=== PATIENT | female | born 1965 | race Caucasian/White ===

== ENCOUNTER 2017-02-15 18:19 | Emergency (ER) | payer MEDICAID ==
[~2017-02-15] VITALS: Ht 170.2 cm; Wt 104.3 kg
[~2017-02-15 18:19] MED LIST: B12 PO; BACTRIM DS 8001 TA1 PO; BACTRIM DS 8001 TAB PO; CIPRO 500MG TA500 MG PO; DOXYCYCLINE HY100 M3 PO; FIORICET1 CAP PO; FLONASE 50 MCG16 GM; HARVONI1 TAB PO; INDERAL10 MG PO; KEFLEX 500MG.500 MG PO; KEFLEX500 M1 PO; LORTAB 5/500 501 TAB PO; MEDROL 4MG. DOSE4 MG PO; NOMEDS *; PHENAZOPYRIDIN200 MG PO; PREDNISONE 20MG20 MG PO; RIBAVIRIN200 M1 PO; SYMBICORT1 AE1 IH; TYLENOL W/CODEI1 TA2 PO; VENTOLIN H0.09 MG/Ac IH
--- OUTSIDE RECORDS SUMMARY | 2017-02-15 18:32 | External Medical Summary Rpt | CCD ---
Author Author , BRIAN Organization BRIAN Address Unknown Phone Care Team Providers Care Residential Glazier Name Role Phone Christophe Haji MD, Unavailable Unavailable MICA Isaac MD, Unavailable Unavailable MICA [facility] Unavailable Unavailable SERVICE, [facility] C BIN OQUENDO MD Unavailable Unavailable [facility], C BIN OQUENDO MD [facility] EDWARD MEERA, CHEYANNE Unavailable Unavailable MEERA [facility] Un[facility] Unavailable [facility], [facility] Unavailable Unavailable [facility], [facility], Unavailable Unavailable [facility] MARY ANN SHAISTA, MARY ANN Unavailable Unavailable SHAISTA ANAHI GARCÍA, Unavailable Unavailable ANAHI GARCÍA [facility] Unavailable Unavailable INC, [facility] Unavailable Unavailable HOSPITAL P, [facility], Unavailable Unavailable [facility] KEISHA BLAIR, Unavailable Unavailable KEISHA BLAIR [facility] Unavailable Unavailable [facility], [facility] Unavailable Unavailable [facility], [facility] Unavailable Unavailable [facility], [facility] Unavailable Unavailable SERVICES, [facility] KATHARINA LIANG, Unavailable Unavailable DEEPIKA ORNELAS JR, JR Unavailable Unavailable Anders, DEEPIKA POSADAS JR, EMMETT P, Unavailable Unavailable BELINDA WELLS [facility] Unavailable [facility] Unavailable Unavailable [facility], [facility] Unavailable Unavailable LAB, [facility] CARISSA COURTNEY, Unavailable Unavailable CARISSA COURTNEY [facility] Unavailable Unavailable EMERGENCY PHYS, [facility] SUHAIL ODOM, Unavailable Unavailable SUHAIL ODOM [facility], Unavailable Unavailable [facility] Unavailable Unavailable #[id number], [facility] # Unavailable Unavailable [id number], [facility] # [id number] [id number], [facility]available Unavailable [id number] Unavailable Unavailable AGENCY, [facility] Deepika Dale Unavailable Marcia PERERA MD, Deepika Dale III, MD Purpose Continuity of Care Document - 06-26-2007 through 2016 Problems Code Diagnosis DOS Provider Status E785 HYPERLIPIDE 12-20-2016 [facility] [facility] UNSPECIFIED INTERNAL MED J302 OTHER 12-20-2016 [facility] [place] [facility] ALLERGIC INTERNAL RHINITIS MED J3089 OTHER 12-20-2016 [facility] ALLERGIC [facility] RHINITIS INTERNAL MED J431 PANLOBULAR 12-20-2016 [facility] EMPHYSEMA [facility] INTERNAL MED K219 GASTRO-ESOP 12-20-2016 [facility] H REFLUX [facility] DISEASE INTERNAL WITHOUT MED ESOPHAGITIS Z23 ENCOUNTER 12-20-2016 [facility] FOR [facility] IMMUNIZATIO INTERNAL N MED Z1231 ENCOUNTER 12-12-2016 [facility] MEDICAL MAMMO MALIG IMAGING ASS NEOPLASM BREAST R300 DYSURIA 11-02-2016 [facility] INTERNAL MED B182 CHRONIC 08-30-2016 [facility] V[facility] SERV HEPATITIS C FOUNDATION I10 ESSENTIAL 08-18-2016 [facility] HYPERTENSIO INTERNAL N MED J310 CHRONIC 08-18-2016 [facility] RHINITIS [place] INTERNAL MED J309 ALLERGIC 07-03-2016 [facility] RHINITIS PHYSICIANS UNSPECIFIED GROUP J320 CHRONIC 07-03-2016 [facility] MAXILLARY PHYSICIANS SINUSITIS GROUP J342 DEVIATED 07-03-2016 [facility] NASAL PHYSICIANS SEPTUM GROUP R040 EPISTAXIS 02-06-2016 [facility] J322 CHRONIC 01-06-2016 [facility] SINUSITIS J329 CHRONIC 01-06-2016 [facility] SINUSITIS ANESTH OF UNSPECIFIED THE BLUE D126 BENIGN 01-03-2016 [facility] NEOPLASM OF PHYSICIANS COLON GROUP UNSPECIFIED J40 BRONCHITIS 12-20-2015 [facility] NOT PHYSICIANS SPECIFIED GROUP ACUTE OR CHRONIC Y04018 ENCOUNTER 12-20-2015 [facility] PRE[facility] INC AL CARIOVASCUL AR EXAM S19885 ENCOUNTER 12-20-2015 [facility] AL LABORATORY EXAM D122 BENIGN 12-14-2015 [facility] NEOPLASM OF LLC ASCENDING COLON D125 BENIGN 12-14-2015 [facility] NEOPLASM OF PHYSICIANS SIGMOID GROUP COLON K529 NONINFECTIV 12-14-2015 [facility] E [facility] GASTROENTER ITIS & COLITIS UNS K633 ULCER OF 12-14-2015 [facility] INTESTINE PHYSICIANS GROUP K635 POLYP OF 12-14-2015 [facility] COLON [facility] K644 RESIDUAL 12-14-2015 [facility] HEMORRHOIDA PHYSICIANS L SKIN TAGS GROUP Z1211 ENCOUNTER 12-14-2015 [facility] SCREENING PHYSICIANS MALIGNANT GROUP NEOPLASM OF COLON J323 CHRONIC 12-10-2015 [facility] SINUSITIS INC R928 OTH ABNORM 12-07-2015 [facility] IN[facility]CLUSIV [facility]ING ASS E FIND ON DX IMAG BREAST M2669 OTHER 11-29-2015 [facility] SPECIFIED PHYSICIANS DISORDER GROUP TEMPOROMAND IBULAR JOINT J0130 ACUTE 11-15-2015 [facility]ENOIDAL [facility] SINUSITIS INTERNAL UNSPECIFIED MED V03297 ENCOUNTER 11-15-2015 [facility] PLANNING SPECIALIST EXAM LLC GENERAL RTN W/O ABNORMAL FIND R079 CHEST PAIN 11-11-2015 [facility] R51 HEADACHE 11-11-2015 [facility] Z720 TOBACCO USE 11-11-2015 [facility] P J029 ACUTE 09-23-2015 [facility] PHARYNGITIS [facility] INTERNAL UNSPECIFIED MED H6591 UNSPECIFIED 01-21-2015 [facility] NONSUPPURAT INTERNAL KAREN OTITIS MED MEDIA RT EAR A90082 PAIN IN 01-21-2015 [facility] RIGHT HIP [facility] INTERNAL MED R938 ABNORMAL 01-21-2015 [facility] FIND ON DX MEDICAL IMAGING OT IMAGING ASS SPEC BODY STRCT 74590 CHRONIC 12-29-2014 [facility] HEPATITIS C SERV WITHOUT FOUNDATION MENTION HEPATIC COMA 5715 CIRRHOSIS 12-29-2014 [facility]ICAL OF LIVER SERV WITHOUT FOUNDATION MENTION OF ALCOHOL 4019 UNSPECIFIED 11-11-2014 [facility] ESSENTIAL [facility] HYPERTENSIO INTERNAL N MED 496 CHRONIC 11-11-2014 [facility] [place] [facility] OBSTRUCTION INTERNAL NEC MED 4659 ACUTE URIS 10-07-2014 [facility] OF [facility] UNSPECIFIED INTERNAL SITE MED 2512 HYPOGLYCEMI 09-23-2014 [facility] A[facility] UNSPECIFIED INC 7820 DISTURBANCE 09-23-2014 [facility] OF SKIN [facility] SENSATION INC V1582 PERS HX 09-20-2014 [facility] TOBACCO USE [facility] PRESENTING INC [facility] 59510 UNSPECIFIED 09-16-2014 [facility]ICAL VIRAL SERV HEPATITIS C FOUNDATION W/O HEPATIC COMA 5920 CALCULUS OF 09-16-2014 [facility] 7804 DIZZINESS 07-30-2014 [facility] GIDD[facility] 7840 HEADACHE 07-30-2014 [facility] V6709 FOLLOW-UP 03-03-2014 [facility] EXAMINATION PHYSICIANS FOLLOWING GROUP OTHER SURGERY 5728 OTHER 03-02-2014 [place] [facility] SEQUEL[facility] OF SERV CHRONIC FOUNDATION LIVER DISEASE 6823 CELLULITIS 02-08-2014 [facility] AND ABSCESS PHYSICIANS OF UPPER GROUP ARM AND FOREARM 6829 CELLULITIS 02-06-2014 [facility] ABSCESS PHYSICIANS OF [place] UNSPECIFIED SITE 95524 OTHER 01-26-2014 [facility] DISORDER OF STOMACH AND DUODENUM 5723 PORTAL 01-26-2014 [facility] N V7189 OBSERVATION 01-26-2014 [facility] SPECIFIED SUSPECTED CONDITIONS 5739 UNSPECIFIED 12-26-2013 [place] [facility]ICAL DISORDER SERV OF LIVER FOUNDATION 6825 CELLULITIS 12-25-2013 [facility] OF [place] PHYS 10629 OTHER 09-29-2013 [facility] FATIGUE INC V0262 HEPATITIS C 09-29-2013 [facility] INC V700 ROUTINE 09-29-2013 [facility]ICAL INC EXAM@HEALTH CARE FACL V7612 OTHER 09-29-2013 [facility] SCREENING MEDICAL MAMMOGRAM IMAGING ASS V7231 ROUTINE 09-24-[address] [facility] EXAMINATION 616.4 616.4 02-13-2013 [place] ABSCESS OF [facility] VULVA [facility] 305.1 305.1 11-26-2012 [place] TOBACCO USE [facility] 780.39 780.39 11-26-2012 [place] OTHER [facility] CONVULSIONS [facility] 913.5 913.5 11-26-2012 [place] INSECT BITE [facility] FOREARM-INF 19247 ACUT 05-18-2012 [facility] TIS W/O LES INC RENAL MEDULRY NECROS 53028 UNSPECIFIED 05-18-2012 [facility] PYELONEPHRI SERVICES TIS 4660 ACUTE 12-19-2011 [facility]IS [facility] INC 490 BRONCHITIS 12-19-2011 [facility] NOT SPECIFIED ACUTE OR CHRONIC 02162 OTHER 12-19-2011 [facility] INSUFFICIEN SERVICE CY NEC 91284 ACUTE 12-19-2011 MARY ANN SHAISTA BRONCHOSPAS M 7862 COUGH 12-19-2011 [facility] 2181 INTRAMURAL 10-12-2011 EDWARD MEERA LEIOMYOMA OF UTERUS 6201 CORPUS 10-12-2011 EDWARD MEERA LUTEUM CYST OR HEMATOMA 6259 UNSPEC 10-12-2011 ED[facility] MEERA SYMPTOM ASSOC W/FEMALE GENITAL ORGANS 2189 LEIOMYOMA 09-01-2011 [facility] OF UTERUS, MEDICAL UNSPECIFIED IMAGING ASS 6202 OTHER AND 09-01-2011 [facility] UNSPECIFIED MEDICAL OVARIAN IMAGING ASS CYST 58647 ABDOMINAL 09-01-2011 [facility] PAIN RIGHT [facility] LOWER INC QUADRANT 5990 URINARY 08-25-2011 KATHARINA TAYLOR TRACT GARTH INFECTION SITE NOT SPECIFIED 34318 UNSPECIFIED 08-25-2011 KATHARINA TAYLOR VAGINITIS GARTH AND VULVOVAGINI TIS 30787 OLD 10-28-2010 [facility] DISRUPTION PHYSICIANS OF ANTERIOR GROUP CRUCIATE LIGAMENT 66464 VISUAL 10-13-2010 [facility] DISCOMFORT [facility]LEY INTERNAL MEDI 00775 PAIN IN 10-13-2010 [facility] JOINT, VALLEY LOWER LEG INTERNAL MEDI 8449 SPRAIN&STRA 10-03-2010 [facility] IN OF [facility] UNSPECIFIED INC SITE OF KNEE&LEG 9596 INJURY 10-03-2010 [facility] OTHER AND MEDICAL UNSPECIFIED IMAGING ASS HIP AND THIGH 9597 INJURY 10-03-2010 [facility] OTHER&[facility]SPE [facility] CIFIED KNEE SERVICES LEG ANKLE&FOOT 3674 PRESBYOPIA 09-22-2010 [facility] 29022 ASTHMA, 06-28-2010 [facility] UNSPECIFIED [facility]GENCY , SERVICES UNSPECIFIED STATUS 5283 CELLULITIS 04-14-2010 [facility] AND ABSCESS VALLEY OF ORAL INTERNAL SOFT MEDI TISSUES 1129 CANDIDIASIS 04-04-2010 [facility] OF [facility] UNSPECIFIED INTERNAL SITE MEDI 8603 TRAUMATIC 04-04-2010 [facility] WITH OPEN AGENCY WOUND INTO THORAX 52889 METHICILLIN 03-17-2010 [facility] SUSCEPTIBLE INTERNAL STAPH INF MED CCE & UNS SITE 41049 METHICILLIN 03-17-2010 [facility] RESISTANT ANESTH OF STAPHYLOCOC THE BLUE CUS AUREUS 68065 FEVER 03-16-2010 C [facility] UNSPECIFIED JERE TRUJILLO PSC 74142 TRICHOMONAL 02-14-2010 PATHOLOGY & CYTOLOGY VULVOVAGINI LAB TIS 6160 CERVICITIS 02-14-2010 PATHOLOGY & AND CYTOLOGY ENDOCERVICI LAB TIS 7242 LUMBAGO 02-14-2010 [facility] INTERNAL MED 89758 DISPLCMT 11-04-2009 [facility] LUMBAR MEDICAL INTERVERT IMAGING ASS DISC W/O MYELOPATHY 7231 CERVICALGIA 11-04-2009 [facility] 7234 BRACHIAL 11-04-2009 [facility] NEURITIS OR [facility] INC RADICULITIS NOS 77561 ABDOMINAL 11-04-2009 [facility] PAIN, [facility] GENERALIZED INC 3540 CARPAL 10-28-2009 [facility] TUNNEL [facility] SYNDROME INTERNAL MED 3562 HEREDITARY 10-21-2009 [facility] SENSORY [facility] NEUROPATHY INC 33074 CHEST PAIN 10-15-2009 [facility] UNSPECIFIED [facility]LEY INTERNAL MED V493 SENSORY 10-15-2009 [facility] PROBLEMS [facility] WITH LIMBS INTERNAL MED V571 OTHER 07-07-2008 [facility] PHYSICAL [facility] THERAPY INC 18707 OTHER ACUTE 06-04-2008 [facility] POSTOPERATI ANESTHESIA VE PAIN PSC 7172 DERANGEMENT 06-04-2008 [facility] POSTERIOR FOUNDATIO HORN OF MEDIAL MENISCUS 8442 SPRAIN AND 06-04-2008 [facility] STRAIN OF H CRUCIATE ANESTHESIA LIGAMENT OF [facility] KNEE 8360 TEAR MEDIAL 05-21-2008 [facility] OR MENISCUS INC KNEE CURRENT 0339 UNSPECIFIED 04-07-2008 [facility] SINUSITIS [place] INTERNAL MED 86652 UNSPECIFIED 04-07-2008 [facility] [place] ARTHROPATHY INTERNAL , LOWER LEG MED 43108 UNSPECIFIED 03-09-2008 [place] ABNORMAL MEDICAL MAMMOGRAM IMAGING ASSOCIATES 5939 UNSPECIFIED 01-21-2008 [place] DISORDER MEDICAL OF KIDNEY IMAGING AND URETER ASSOCIATES 5952 OTHER 01-21-2008 [facility] CHRONIC [facility] CYSTITIS INC 2724 OTHER AND 12-16-2007 [facility] UNSPECIFIED [place] INTERNAL HYPERLIPIDE MED JESICA 55488 OTHER 12-16-2007 [facility] CHRONIC [facility] PAIN INTERNAL MED V5883 ENCOUNTER 12-16-2007 [facility] FOR [facility] THERAPEUTIC INTERNAL DRUG MED MONITORING V762 SCREENING 09-25-2007 [facility] INC MALIGNANT NEOPLASM OF THE CERVIX 11559 OTHER 09-18-2007 [facility] ANXIETY [place] STATES INTERNAL MED 4778 ALLERGIC 09-18-2007 [facility] RHINITIS [place] DUE TO INTERNAL OTHER MED ALLERGEN 10710 ESOPHAGEAL 09-18-2007 [facility] REFLUX [place] INTERNAL MED J01.90 ACUTE SINUSITIS, UNSPECIFIED R04.0 EPISTAXIS R07.9 CHEST PAIN, UNSPECIFIED R51 HEADACHE Allergies, Adverse Reactions, Alerts Type Drug Allergy Adverse Reaction to Substance Substance Reaction Severity Tuberculin Unknown Unknown Medications Na ND Rx Da Fi Fi Am Da Di Ph RX Ph St me C No te ll ll ou ys ag ar # ys at rm s nt no ma ic us Or Da si cy ia de te s n re d HY 68 09 10 90 [address] 64 -2 -2 .0 00 L- ti OC 50 4- 0- 00 07 MA ve HL 51 20 20 48 RT OR 05 17 17 88 OT 4 45 PH HI AR AZ MA ID CY E 25 #5 91 MG TA B FL 60 09 10 16 30 00 WI Ac UT 43 -2 -1 .0 00 L- ti IC 20 0- 3- 00 07 MA ve 26 20 20 51 RT ON 41 17 17 08 E 5 05 PH IL AR OP MA CY 50 #5 MC 91 G SP RA Y EQ 49 09 10 60 30 00 WI Ac 03 -2 -1 .0 00 L- ti AC 50 0- 3- 00 08 MA ve ID 54 20 20 84 RT 67 17 17 12 RE 1 34 PH DU AR CE MA R CY CO MP #5 LE 91 T TB CH W MORENO 53 08 09 6. 3 00 WI Ac LF 74 -0 -0 00 00 L- ti AM 60 3- 1- 0 07 MA ve ET 27 20 20 50 RT HO 20 17 17 21 XA 5 30 PH ZO AR LE MA -T CY MP #5 DS 91 TA BL ET BR 00 07 08 60 30 00 WI Ac EO 17 -3 -2 .0 00 L- ti 30 0- 5- 00 07 MA ve EL 88 20 20 48 RT LI 21 17 17 88 PT 0 81 PH A AR 20 MA 0- CY 25 #5 MC 91 G IN H FL 60 07 08 16 30 00 WI Ac UT 43 -3 -2 .0 00 L- ti IC 20 0- 5- 00 07 MA ve 26 20 20 48 RT ON 41 17 17 88 E 5 49 PH IL AR OP MA CY 50 #5 MC 91 G SP RA Y HY 68 06 07 90 [address] 64 -1 -1 .0 00 L- ti OC 50 8- 4- 00 07 MA ve HL 51 20 20 48 RT OR 05 17 17 88 OT 4 45 PH HI AR AZ MA ID CY E 25 #5 91 MG TA B IL 00 06 07 18 90 00 WI Ac OP 37 -1 -1 0. 00 L- ti RA 80 8- 4- 00 07 MA ve NO 18 20 20 0 48 RT LO 30 17 17 88 L 1 44 PH 20 AR MA MG CY TA #5 BL 91 ET VE 00 05 06 36 30 00 WI Ac NT 17 -1 -1 .0 00 L- ti OL 30 9- 6 07 MA ve IN 68 20 20 48 RT 22 17 17 88 HF 0 46 PH A AR 90 MA CY MC G #5 IN 91 CORNEJO LE R FL 60 05 06 16 30 00 WI Ac UT 43 -1 -1 .0 00 L- ti IC 20 9 6 07 MA ve 26 20 20 48 RT ON 41 17 17 88 E 5 49 PH IL AR OP MA CY 50 #5 MC 91 G SP RA Y BR 00 05 06 60 30 00 WI Ac EO 17 -1 -1 .0 00 L- ti 30 07 MA ve EL 88 20 20 48 RT LI 21 17 17 88 PT 0 81 PH A AR 20 MA 0- CY 25 #5 MC 91 G IN H MO 31 05 09 29 30 00 WI Ac NT 72 -1 -0 .0 00 L- ti EL 20 9 07 MA ve UK 72 20 20 48 RT 61 17 17 23 T 0 56 PH SO AR D MA 10 CY MG #5 91 TA BL ET IL 23 05 06 60 30 00 WI Ac OP 15 -1 -0 .0 00 L- ti RA 50 6 9 07 MA ve NO 11 20 20 47 RT LO 10 17 17 85 L 1 17 PH 20 AR MA MG CY TA #5 BL 91 ET HY 68 05 30 [address] 64 -1 -0 .0 00 L- ti OC 50 6 9 07 MA ve HL 51 20 20 48 RT OR 05 17 17 23 OT 4 36 PH HI AR AZ MA ID CY E 25 #5 91 MG TA B HY 16 04 30 [address] 72 -1 -1 .0 00 L- ti OC 90 4- 2- 00 07 MA ve HL 18 20 20 48 RT OR 31 17 17 23 OT 7 36 PH HI AR AZ MA ID CY E 25 #5 91 MG TA B MO 31 04 05 30 30 00 WI Ac NT 72 -1 -1 .0 00 L- ti EL 20 4 2- 00 07 MA ve UK 72 20 20 48 RT 69 17 17 23 T 0 56 PH SO AR D MA 10 CY MG #5 91 TA BL ET IL 00 03 04 60 30 00 WA Ac OP 37 -2 -2 .0 00 L- ti RA 80 5- 1- 00 07 MA ve NO 18 20 20 47 RT LO 30 17 17 85 L 1 17 PH 20 AR MA MG CY TA #5 BL 91 ET HY 00 02 03 [address] 40 -2 -2 .0 00 L- ti OC 60 8- 4- 00 02 MA ve OD 12 20 20 23 RT ON 40 17 17 93 -A 1 10 PH CE AR TA MA DE CY NO PH #5 91 7. 5- 32 5 IB 68 02 03 30 8 00 WI Ac UP 64 -2 -2 .0 00 L- ti RO 50 8- 4- 00 07 MA ve FE 53 20 20 47 RT N 05 17 17 34 60 9 20 PH 0 AR MG MA CY TA BL #5 ET 91 AM 00 02 03 30 10 00 WI Ac OX 09 -2 -2 .0 00 L- ti IC 33 8- 4- 00 07 MA ve IL 10 20 20 47 RT LI 90 17 17 34 N 5 23 PH 50 AR 0 MA MG CY CA #5 PS 91 UL E IL 23 02 03 60 30 00 WI Ac OP 15 -1 -1 .0 00 L- ti RA 50 4- 0- 00 07 MA ve NO 11 20 20 43 RT LO 10 17 17 26 L 1 36 PH 20 AR MA MG CY TA #5 BL 91 ET IL 23 01 02 60 30 00 WI Ac OP 15 -1 -1 .0 00 L- ti RA 50 4- 0- 00 07 MA ve NO 11 20 20 43 RT LO 10 17 17 26 L 1 36 PH 20 AR MA MG CY TA #5 BL 91 ET IL 23 12 01 60 30 00 WI Ac OP 15 -0 -0 .0 00 L- ti RA 50 5- 9- 00 07 MA ve NO 11 20 20 43 RT LO 10 16 17 26 L 1 36 PH 20 AR MA MG CY TA #5 BL 91 ET MO 54 12 01 30 30 00 WI Ac NT 45 -0 -0 .0 00 L- ti EL 80 5- 9- 00 07 MA ve UK 89 20 20 43 RT 01 16 17 81 T 0 64 PH SO AR D MA 10 CY MG #5 91 TA BL ET LI 00 11 0 No DO 40 -1 CA 93 4- Lo IN 17 20 ng E 80 13 er 1% 1 -E Ac PI ti ve 1: 10 0, 00 0 00 07 07 0 12 3 WA 44 WE Ac 40 -0 -0 .0 L- 94 HR ti 60 4- 4- 00 MA 76 MA ve 35 20 20 RT 5 N 70 11 11 II 5 PH I AR WI MA LL CY IA # M E 10 05 91 ME 00 03 03 0 21 6 WA 71 GA Ac TH 60 -2 -3 .0 L- 13 IN ti YL 34 9- 0- 00 MA 26 EY ve IL 59 20 20 RT 9 ED 31 11 11 DE NI 5 PH CH SO AR AE LO MA L NE CY S 4 # MG 10 05 DO 91 SE PK CI 00 03 03 0 14 7 WA 71 GA Ac IL 37 -2 -3 .0 L- 13 IN ti OF 87 9- 0- 00 MA 26 EY ve LO 09 20 20 RT 8 XA 80 11 11 DE CI 1 PH CH N AR AE HC MA L L CY S 50 # 0 MG 10 05 TA 91 B VE 00 04 01 4 12 30 WI 70 BE Ac NL 09 -2 -1 0. L- 68 SS ti AF 37 8- 0- 00 MA 56 ON ve AX 38 20 20 0 RT 0 IN [address] E 1 PH EP HC AR HE L MA N 75 CY A # MG 10 TA 05 BL 91 ET LA 00 12 01 1 60 30 WA 71 DE Ac MO 09 -2 -1 .0 L- 01 LL ti TR 30 1- 0- 00 MA 85 ER ve IG 03 20 20 RT 8 IN 90 10 11 CA E 1 PH RO 25 AR L MA J MG CY # TA BL 10 ET 05 91 FL 00 01 01 0 2. 7 WI 71 FL Ac UC 17 -0 -0 00 L- 00 OR ti ON 25 3- 3- 0 MA 84 EN ve AZ 41 20 20 RT 9 CE OL 21 11 11 E 1 PH SA 15 AR RA 0 MA H MG CY L # TA BL 10 ET 05 91 MORENO 53 12 12 0 20 10 WA 71 FL Ac LF 74 -3 -3 .0 L- 00 OR ti AM 60 0- 0- 00 MA 37 EN ve ET 27 20 20 RT 8 CE HO 20 10 10 XA 5 PH SA ZO AR RA LE MA H -T CY L MP # DS 10 05 TA 91 BL ET IB 68 12 12 2 12 30 WA 70 MC Ac UP 64 -2 -2 0. L- 99 KE ti RO 50 0- 0- 00 MA 10 DE ve FE 22 20 20 0 RT 3 E N 15 10 10 JR 60 9 PH 0 AR WI MG MA LL CY IA TA # M BL F ET 10 05 91 CI 00 12 12 0 20 10 WA 70 MC Ac IL 37 -2 -2 .0 L- 99 KE ti OF 87 0- 0- 00 MA 10 DE ve LO 09 20 20 RT 6 E XA 80 10 10 JR CI 1 PH N AR WI HC MA LL L CY IA 50 # M 0 F MG 10 05 TA 91 B MORENO 53 12 12 0 20 10 WA 70 MC Ac LF 74 -2 -2 .0 L- 99 KE ti AM 60 0- 0- 00 MA 10 DE ve ET 27 20 20 RT 7 E HO 20 10 10 JR XA 5 PH ZO AR WI LE MA LL -T CY IA MP # M F DS 10 05 TA 91 BL ET LA 00 11 11 0 60 30 WA 70 DE Ac MO 09 -2 -2 .0 L- 95 LL ti TR 30 3- 3- 00 MA 65 ER ve IG 03 20 20 RT 6 IN 90 10 10 CA E 1 PH RO 25 AR L MA J MG CY # TA BL 10 ET 05 91 VE 00 04 11 4 12 30 WA 70 BE Ac NL 09 -2 -1 0. L- 68 SS ti AF 37 8- 5- 00 MA 56 ON ve AX 38 20 20 0 RT 0 IN [address] E 1 PH EP HC AR HE L MA N 75 CY A # MG 10 TA 05 BL 91 ET IB 68 08 11 2 12 30 [place] 70 MC Ac UP 64 -1 -1 0. L- 84 KE ti RO 50 6- 5- 00 MA 25 DE ve FE 22 20 20 0 RT 7 E N 15 10 10 JR 60 9 PH 0 AR WI MG MA LL CY IA TA # M BL F ET 10 05 91 IB 68 08 10 2 12 30 [place] 70 MC Ac UP 64 -1 -0 0. L- 84 KE ti RO 50 6- 4- 00 MA 25 DE ve FE 22 20 20 0 RT 7 E N 15 10 10 JR 60 9 PH 0 AR WI MG MA LL CY IA TA # M BL F ET 10 05 91 VE 00 04 10 4 12 30 [place] 70 BE Ac NL 09 -2 -0 0. L- 68 SS ti AF 37 8- 4- 00 MA 56 ON ve AX 38 20 20 0 RT 0 IN [address] E 1 PH EP HC AR HE L MA N 75 CY A # MG 10 TA 05 BL 91 ET 00 08 08 0 30 30 [place] 70 MC Ac 37 -1 -3 .0 L- 84 KE ti 80 6- 1- 00 MA 25 DE ve 75 20 20 RT 6 E 19 10 10 JR 3 PH AR WI MA LL CY IA # M F 10 05 91 IB 68 08 08 2 12 30 [place] 70 MC Ac UP 64 -1 -3 0. L- 84 KE ti RO 50 6- 1- 00 MA 25 DE ve FE 22 20 20 0 RT 7 E N 15 10 10 JR 60 9 PH 0 AR WI MG MA LL CY IA TA # M BL F ET 10 05 91 VE 00 04 04 4 12 30 [place] 70 BE Ac NL 09 -2 -2 0. L- 68 SS ti AF 37 8- 8- 00 MA 56 ON ve AX 38 20 20 0 RT 0 IN [address] E 1 PH EP HC AR HE L MA N 75 CY A # MG 10 TA 05 BL 91 ET CI 00 04 04 0 14 7 WA 70 GA Ac IL 37 -1 -1 .0 L- 66 IN ti OF 87 2- 3- 00 MA 41 EY ve LO 09 20 20 RT 8 XA 80 10 10 DE CI 1 PH CH N AR AE HC MA L L CY S 50 # 0 MG 10 05 TA 91 B ME 00 04 04 0 21 6 WA 70 GA Ac TH 60 -1 -1 .0 L- 66 IN ti YL 34 2- 3- 00 MA 41 EY ve IL 59 20 20 RT 7 ED 31 10 10 DE NI 5 PH CH SO AR AE LO MA L NE CY S 4 # MG 10 05 DO 91 SE PK VE 00 11 02 01 90 30 WA 70 BE Ac NL 09 -1 -1 .0 L- 46 SS ti AF 37 8- 1- 00 MA 43 ON ve AX 38 20 20 RT 2 IN [address] E 1 PH EP HC AR HE L MA N 75 CY A MG #5 91 TA BL ET IL 37 11 02 02 30 30 WA 88 BE Ac IL 00 -0 -1 .0 L- 14 SS ti OS 00 3- 1- 00 MA 96 ON ve EC 45 20 20 RT [address] OT 4 PH EP C AR HE 20 MA N .6 CY A MG #5 91 TA BL ET IL 37 11 12 01 30 30 WA 88 BE Ac IL 00 -0 -3 .0 L- 14 SS ti OS 00 3- 1- 00 MA 96 ON ve EC 45 20 20 RT [address] OT 4 PH EP C AR HE 20 MA N .6 CY A MG #5 91 TA BL ET VE 00 11 12 00 90 30 WA 70 BE Ac NL 09 -1 -0 .0 L- 46 SS ti AF 37 8- 3- 00 MA 43 ON ve AX 38 20 20 RT 2 IN [address] E 1 PH EP HC AR HE L MA N 75 CY A MG #5 91 TA BL ET IL 37 11 11 00 30 30 WA 88 BE Ac IL 00 -0 -1 .0 L- 14 SS ti OS 00 3- 9- 00 MA 96 ON ve EC 45 20 20 RT [address] OT 4 PH EP C AR HE 20 MA N .6 CY A MG #5 91 TA BL ET EF 00 11 11 00 30 30 WA 70 BE Ac FE 00 -0 -1 .0 L- 44 SS ti XO 80 3- 9- 00 MA 08 ON ve R 83 20 20 RT 0 XR [address] 1 PH EP 15 AR HE 0 MA N MG CY A CA #5 PS 91 UL E LA 00 05 06 00 12 30 WA 70 MC Ac MO 09 -2 -0 0. L- 21 KE ti TR 30 2- 4- 00 MA 62 DE ve IG 03 20 20 0 RT 4 E IN 90 09 09 JR E 1 PH 25 AR WI MA LL MG CY IA M TA #5 F BL 91 ET IL 37 07 04 04 30 30 WA 88 HU Ac IL 00 -1 -2 .0 L- 12 NT ti OS 00 4- 3- 00 MA 51 ER ve EC 45 20 20 RT 8 50 08 09 NA OT 4 PH NC C AR Y 20 MA C .6 CY MG #5 91 TA BL ET LI 63 01 04 01 30 30 WA 70 JU Ac DO 48 -1 -2 .0 L- 03 DY ti DE 10 3- 3- 00 MA 68 ve RM 68 20 20 RT 7 NA 70 09 09 TA 5% 6 PH LI AR E PA MA E TC CY H #5 91 VE 00 07 04 04 60 30 WA 69 HU Ac NL 09 -1 -2 .0 L- 79 NT ti AF 37 4- 3- 00 MA 37 ER ve AX 38 20 20 RT 5 IN 20 08 09 NA E 1 PH NC HC AR Y L MA C 75 CY MG #5 91 TA BL ET 60 03 03 00 60 30 WA 70 HU Ac 50 -1 -2 .0 L- 12 NT ti 52 9- 6- 00 MA 90 ER ve 58 20 20 RT 1 50 09 09 NA 6 PH NC AR Y MA C CY #5 91 00 03 03 00 30 3 WA 44 GR Ac 40 -1 -2 .0 L- 75 AN ti 60 0- 6- 00 MA 03 T ve 36 20 20 RT 6 RO 30 09 09 BE 1 PH RT AR T MA CY #5 91 00 03 03 00 30 3 WA 44 GR Ac 40 -1 -2 .0 L- 75 AN ti 60 7- 6- 00 MA 17 T ve 36 20 20 RT 8 RO 30 09 09 BE 1 PH RT AR T MA CY #5 91 00 03 03 00 30 2 WA 44 GR Ac 40 -0 -1 .0 L- 74 AN ti 60 5- 2- 00 MA 90 T ve 36 20 20 RT 0 RO 30 09 09 BE 1 PH RT AR T MA CY #5 91 58 03 03 00 6. 1 WA 70 GR Ac 17 -0 -1 00 L- 10 AN ti 70 5- 2- 0 MA 89 T ve 30 20 20 RT 6 RO 10 09 09 BE 4 PH RT AR T MA CY #5 91 IL 68 03 03 00 20 5 WA 70 GR Ac OM 38 -0 -1 .0 L- 10 AN ti ET 20 5- 2- 00 MA 89 T ve CORNEJO 04 20 20 RT 8 RO ZI 10 09 09 BE NE 1 PH RT AR T 25 MA CY MG #5 TA 91 BL ET CE 68 03 03 00 6. 1 WA 70 GR Ac PH 18 -0 -1 00 L- 10 AN ti AL 00 5- 2- 0 MA 89 T ve EX 12 20 20 RT 7 RO IN 20 09 09 BE 1 PH RT 50 AR T 0 MA MG CY CA #5 PS 91 UL E LI 63 01 01 00 30 30 WA 70 JU Ac DO 48 -1 -3 .0 L- 03 DY ti DE 10 3- 0- 00 MA 68 ve RM 68 20 20 RT 7 NA 70 09 09 TA 5% 6 PH LI AR E PA MA E TC CY H #5 91 NA 00 07 01 02 17 30 WA 69 HU Ac SO 08 -1 -1 .0 L- 79 NT ti NE 51 4- 5- 00 MA 37 ER ve X 28 20 20 RT 3 50 80 08 09 NA 1 PH NC MC AR Y G MA C NA CY SA L #5 SP 91 RA Y 63 10 01 01 60 30 WA 69 AD Ac 30 -2 -1 .0 L- 93 KI ti 40 8- 5- 00 MA 13 NS ve 71 20 20 RT 5 00 08 09 TI 1 PH MO AR TH MA Y CY D #5 91 53 01 01 00 90 30 WA 70 BE Ac 74 -0 -1 .0 L- 02 SS ti 60 6- 5- 00 MA 67 ON ve 13 20 20 RT [address] 5 PH EP AR HE MA N CY A #5 91 AM 00 01 01 00 20 10 WA 70 BE Ac OX 09 -0 -1 .0 L- 02 SS ti IC 32 6- 5- 00 MA 66 ON ve IL 26 20 20 RT 8 LI [address] N 1 PH EP 87 AR HE 5 MA N MG CY A TA #5 BL 91 ET 60 01 01 00 24 4 WA 70 BE Ac 25 -0 -1 0. L- 02 SS ti 80 6- 5- 00 MA 66 ON ve 23 20 20 0 RT [address] 6 PH EP AR HE MA N CY A #5 91 SE 00 07 01 03 30 30 WA 69 HU Ac RO 31 -1 -1 .0 L- 79 NT ti QU 00 4- 5- 00 MA 37 ER ve EL 27 20 20 RT 4 11 08 09 NA 10 0 PH NC 0 AR Y MG MA C CY TA BL #5 ET 91 IL 37 07 01 03 30 30 WA 88 HU Ac IL 00 -1 -1 .0 L- 12 NT ti OS 00 4- 5- 00 MA 51 ER ve EC 45 20 20 RT 8 50 08 09 NA OT 4 PH NC C AR Y 20 MA C .6 CY MG #5 91 TA BL ET VE 00 07 01 03 60 30 WA 69 HU Ac NL 09 -1 -1 .0 L- 79 NT ti AF 37 4- 5- 00 MA 37 ER ve AX 38 20 20 RT 5 IN 20 08 09 NA E 1 PH NC HC AR Y L MA C 75 CY MG #5 91 TA BL ET 63 10 11 00 60 30 WA 69 AD Ac 30 -2 -0 .0 L- 93 KI ti 40 8- 7- 00 MA 13 NS ve 71 20 20 RT 5 00 08 08 TI 1 PH MO AR TH MA Y CY D #5 91 NI 00 10 11 00 30 30 WA 69 AD Ac TR 37 -2 -0 .0 L- 92 KI ti OF 83 1- 7- 00 MA 29 NS ve UR 42 20 20 RT 3 AN 20 08 08 TI TO 1 PH MO IN AR TH MA Y MO CY D NO -M #5 CR 91 10 0 MG MORENO 53 10 10 00 20 10 WA 69 JU Ac LF 74 -0 -2 .0 L- 90 DY ti AM 60 7- 3- 00 MA 37 ve ET 27 20 20 RT 8 NA HO 20 08 08 TA XA 5 PH LI ZO AR E LE MA E -T CY MP #5 DS 91 TA BL ET DI 00 07 09 02 30 30 WA 44 BE Ac AZ 37 -1 -2 .0 L- 69 SS ti EP 80 4- 6- 00 MA 47 ON ve AM 47 20 20 RT [address] 10 5 PH EP AR HE MG MA N CY A TA BL #5 ET 91 NA 00 07 09 01 17 30 WA 69 HU Ac SO 08 -1 -2 .0 L- 79 NT ti NE 51 4- 6- 00 MA 37 ER ve X 28 20 20 RT 3 50 80 08 08 NA 1 PH NC MC AR Y G MA C NA CY SA L #5 SP 91 RA Y IL 37 07 09 02 30 30 WA 88 HU Ac IL 00 -1 -2 .0 L- 12 NT ti OS 00 4- 6- 00 MA 51 ER ve EC 45 20 20 RT 8 50 08 08 NA OT 4 PH NC C AR Y 20 MA C .6 CY MG #5 91 TA BL ET SE 00 07 09 02 30 30 WA 69 HU Ac RO 31 -1 -2 .0 L- 79 NT ti QU 00 4- 6- 00 MA 37 ER ve EL 27 20 20 RT 4 11 08 08 NA 10 0 PH NC 0 AR Y MG MA C CY TA BL #5 ET 91 VE 00 07 09 02 60 30 WA 69 HU Ac NL 09 -1 -2 .0 L- 79 NT ti AF 37 4- 6- 00 MA 37 ER ve AX 38 20 20 RT 5 IN 20 08 08 NA E 1 PH NC HC AR Y L MA C 75 CY MG #5 91 TA BL ET VE 00 07 08 01 60 30 WA 69 HU Ac NL 09 -1 -2 .0 L- 79 NT ti AF 37 4- 8- 00 MA 37 ER ve AX 38 20 20 RT 5 IN 20 08 08 NA E 1 PH NC HC AR Y L MA C 75 CY MG #5 91 TA BL ET IL 37 07 08 01 30 30 WA 88 HU Ac IL 00 -1 -2 .0 L- 12 NT ti OS 00 4- 8- 00 MA 51 ER ve EC 45 20 20 RT 8 50 08 08 NA OT 4 PH NC C AR Y 20 MA C .6 CY MG #5 91 TA BL ET SE 00 07 08 01 30 30 WA 69 HU Ac RO 31 -1 -2 .0 L- 79 NT ti QU 00 4- 8- 00 MA 37 ER ve EL 27 20 20 RT 4 11 08 08 NA 10 0 PH NC 0 AR Y MG MA C CY TA BL #5 ET 91 DI 00 07 08 01 30 30 WA 44 BE Ac AZ 37 -1 -2 .0 L- 69 SS ti EP 80 4- 8- 00 MA 47 ON ve AM 47 20 20 RT [address] 10 5 PH EP AR HE MG MA N CY A TA BL #5 ET 91 63 08 08 00 20 10 WA 69 CORNEJO Ac 30 -1 -2 .0 L- 82 RV ti 40 3- 8- 00 MA 94 EY ve 50 20 20 RT 3 92 08 08 LIAM 0 PH DI AR MA CY #5 91 NA 00 07 08 00 17 30 WA 69 HU Ac SO 08 -1 -0 .0 L- 79 NT ti NE 51 4- 1- 00 MA 37 ER ve X 28 20 20 RT 3 50 80 08 08 NA 1 PH NC MC AR Y G MA C NA CY SA L #5 SP 91 RA Y DI 00 07 08 00 30 30 WA 44 BE Ac AZ 37 -1 -0 .0 L- 69 SS ti EP 80 4- 1- 00 MA 47 ON ve AM 47 20 20 RT [address] 10 5 PH EP AR HE MG MA N CY A TA BL #5 ET 91 IL 37 07 08 00 30 30 WA 88 HU Ac IL 00 -1 -0 .0 L- 12 NT ti OS 00 4- 1- 00 MA 51 ER ve EC 45 20 20 RT 8 50 08 08 NA OT 4 PH NC C AR Y 20 MA C .6 CY MG #5 91 TA BL ET SE 00 07 08 00 30 30 WA 69 HU Ac RO 31 -1 -0 .0 L- 79 NT ti QU 00 4- 1- 00 MA 37 ER ve EL 27 20 20 RT 4 11 08 08 NA 10 0 PH NC 0 AR Y MG MA C CY TA BL #5 ET 91 VE 00 07 08 00 60 30 WA 69 HU Ac NL 09 -1 -0 .0 L- 79 NT ti AF 37 4- 1- 00 MA 37 ER ve AX 38 20 20 RT 5 IN 20 08 08 NA E 1 PH NC HC AR Y L MA C 75 CY MG #5 91 TA BL ET IL 37 06 07 00 30 30 WA 88 HU Ac IL 00 -1 -0 .0 L- 12 NT ti OS 00 8- 3- 00 MA 39 ER ve EC 45 20 20 RT 5 50 08 08 NA OT 4 PH NC C AR Y 20 MA C .6 CY MG #5 91 TA BL ET NA 00 06 07 00 17 30 WA 69 HU Ac SO 08 -1 -0 .0 L- 76 NT ti NE 51 8- 3- 00 MA 31 ER ve X 28 20 20 RT 2 50 80 08 08 NA 1 PH NC MC AR Y G MA C NA CY SA L #5 SP 91 RA Y DI 00 02 07 02 30 30 WA 44 No Ac AZ 37 -2 -0 .0 L- 67 t ti EP 80 0- 3- 00 MA 00 Av ve AM 47 20 20 RT 4 ai 70 08 08 la 10 5 PH bl AR e MG MA CY TA BL #5 ET 91 VE 00 06 07 00 60 30 WA 69 No Ac NL 09 -1 -0 .0 L- 75 t ti AF 37 4- 3- 00 MA 90 Av ve AX 38 20 20 RT 1 ai IN 20 08 08 la E 1 PH bl HC AR e L MA 75 CY MG #5 91 TA BL ET SE 00 06 07 00 30 16 WA 69 No Ac RO 31 -1 -0 .0 L- 76 t ti QU 00 6- 3- 00 MA 03 Av ve EL 27 20 20 RT 8 ai 11 08 08 la 10 0 PH bl 0 AR e MG MA CY TA BL #5 ET 91 VE 00 05 05 00 60 30 WA 69 No Ac NL 09 -0 -2 .0 L- 70 t ti AF 37 5- 2- 00 MA 69 Av ve AX 38 20 20 RT 8 ai IN 00 08 08 la E 1 PH bl HC AR e L MA 37 CY .5 #5 MG 91 TA BL ET SE 00 05 05 00 70 30 WA 69 No Ac RO 31 -0 -2 .0 L- 70 t ti QU 00 5- 2- 00 MA 69 Av ve EL 27 20 20 RT 9 ai 51 08 08 la 25 0 PH bl AR e MG MA CY TA BL #5 ET 91 DI 00 05 05 00 30 30 WA 44 No Ac AZ 37 -0 -2 .0 L- 68 t ti EP 80 5- 2- 00 MA 24 Av ve AM 47 20 20 RT 8 ai 70 08 08 la 10 5 PH bl AR e MG MA CY TA BL #5 ET 91 DI 00 02 05 01 30 30 WA 44 No Ac AZ 37 -2 -0 .0 L- 67 t ti EP 80 0- 8- 00 MA 00 Av ve AM 47 20 20 RT 4 ai 70 08 08 la 10 5 PH bl AR e MG MA CY TA BL #5 ET 91 DI 00 02 04 00 30 30 WA 44 No Ac AZ 37 -2 -1 .0 L- 67 t ti EP 80 0- 7- 00 MA 00 Av ve AM 47 20 20 RT 4 ai 70 08 08 la 10 5 PH bl AR e MG MA CY TA BL #5 ET 91 NA 00 02 04 00 17 30 WA 69 No Ac SO 08 -2 -1 .0 L- 65 t ti NE 51 0- 0- 00 MA 62 Av ve X 28 20 20 RT 3 ai 50 80 08 08 la 1 PH bl MC AR e G MA NA CY SA L #5 SP 91 RA Y DI 00 02 03 00 30 30 WA 16 No Ac AZ 37 -2 -2 .0 LG 88 t ti EP 80 0- 6- 00 RE 60 Av ve AM 47 20 20 EN 2 ai 70 08 08 S la 10 5 #1 bl 07 e MG 76 TA BL ET Vital Signs 02-13-2013 18:44 Name Value Interpretat Reference Comment ion Range Body 98.1 [degF] Temperature BP 99 mm[Hg] Diastolic BP Systolic 139 mm[Hg] Heart 78 /min Rate/Pulse O2% 97 % Respiratory 16 /min Rate 02-13-2013 18:34 Name Value Interpretat Reference Comment ion Range Body 98.1 [degF] Temperature 02-13-2013 17:22 Name Value Interpretat Reference Comment ion Range BP 83 mm[Hg] Diastolic BP Systolic 128 mm[Hg] Heart 76 /min Rate/Pulse O2% 96 % Respiratory 18 /min Rate 11-26-2012 11:07 Name Value Interpretat Reference Comment ion Range BP 89 mm[Hg] Diastolic BP Systolic 151 mm[Hg] Heart 78 /min Rate/Pulse O2% 98 % Respiratory 18 /min Rate 11-26-2012 11:06 Name Value Interpretat Reference Comment ion Range Body 98.5 [degF] Temperature BP 89 mm[Hg] Diastolic BP Systolic 151 mm[Hg] Heart 78 /min Rate/Pulse O2% 98 % Respiratory 18 /min Rate Results Labs Lab Lab Date Result Refere Interp Status Commen Order Detail nces retati t Range on HAV IgG+IgM Ser Ql (06-08-2016 12:34) HAV POS complet IgG+IgM 017 POSITIV ed Ser Ql 12:34 E L HBV surface Ab Ser Ql (06-08-2016 12:34) HBV 101.39 complet surface 017 ed Ab Ser 12:34 Ql LKM-1 IgG Ser EIA-aCnc (06-08-2016 12:34) LKM-1 <=20.0 <=20.0 complet IgG Ser 017 U ed 12:34 EIA-aCn c Procedures Procedure DOS Code Location Performer Comment [facility] [address] [place] 0 [facility] W/DRAINAG [facility] E SKIN&SUBC UTANEOUS TISSUE [facility] [address] [place] 0 [facility] W/DRAINAG INC INC E SKIN&SUBC UTANEOUS TISSUE INCIS 71.09 Deepika VULVA/PER E. INEUM NEC Suyapa PERERA MD Encounters Encounter Start End Date Code Location Performer Type Date [facility] [place] - [facility] 7 [facility] [place] [facility] [place] [facility] [place] [facility] [place] [facility] [place] [facility] [place] [facility] [place] [facility] [place] [facility] [place] [facility] [place] [facility] [place] [facility] [place] [facility] [place] [facility] [place] [facility] [place] [facility] [place] [facility] [place] [facility] [place] [facility] [place] [facility] [address] [facility] [place] [facility] 5 5 [facility] [place] [facility] 5 [facility] [place] [facility] 5 5 [facility] [place] [facility] 5 5 [facility] [address] [facility] [place] 5 5 [facility] [place] [facility] - [address] [facility] - [address] [facility] - [address] [facility] [place] [facility] 4 4 [facility] [place] - 4 4 [facility] Emergency BRAD Dale (ER) 3 16:56 3 18:39 [facility] Emergency BRAD Haji MD (ER) 3 11:05 3 11:25 [facility] [place] - 3 3 [facility] [place] [facility] 2 [facility] [place] [facility] 2 2 [facility] [place] [facility] 1 [facility] [place] - 1 1 [facility], 1 1 HOME OUTPATIEN [facility] 0 0 HOME OUTPATIEN [facility] [place] - [facility] 0 [facility]IENT [facility] [place] [facility] 0 0 [facility] [place] [facility] [place] [facility] 0 0 [facility] [place] [facility] 0 0 [facility] [place] [facility] 9 9 [facility] [place] [facility] 9 9 [facility] [place] [facility] 9 9 [facility] [place] 9 9 [facility] [place] [facility] 9 9 [facility] [place] 8 8 [facility] [place] [facility] 8 8 [facility] [place] [facility] 8 8 [facility] [place] 8 8 [facility] [place] [facility] 8 [facility]
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
--- OUTSIDE RECORDS SUMMARY | 2017-02-15 18:37 | External Medical Summary Rpt | CCD ---
Author Author , REIDJULIO C Gee BRIAN Address Unknown Phone [email or web address] Care Team Providers Care Hockey Player Name Role Phone MICA BLACKWOOD, Unavailable Unavailable MICA BLACKWOOD [facility] Unavailable Unavailable SERVICE, [facility] C BIN OQUENDO MD Unavailable Unavailable [facility], C BIN OQUENDO MD [facility] CHEYANNE MEERA, CHEYANNE Unavailable Unavailable MEERA [facility] Unavailable Unavailable [place], [facility] Unavailable Unavailable [facility], Unavailable Unavailable [facility] MARY ANN SHAISTA, MARY ANN Unavailable Unavailable SHAISTA ANAHI GARCÍA, Unavailable Unavailable ANAHI GARCÍA [facility] Unavailable Unavailable INC, [facility] Unavailable Unavailable HOSPITAL P, [facility], Unavailable Unavailable [facility] KEISHA BLAIR, Unavailable Unavailable KEISHA BLAIR [facility] Unavailable Unavailable IMAGING [facility], [facility] Un[facility], [facility] Unavailable Unavailable INTERNAL MED, [facility] INTER[facility] Unavailable Unavailable INTERNAL MEDI, [facility] INTERNAL MEDI [facility] Unavailable Unavailable SERVICES, [facility] KATHARINA LIANG, Unavailable Unavailable DEEPIKA ORNELAS JR, JR Unavailable Unavailable F, DEEPIKA POSADAS JR, EMMETT P, Unavailable Unavailable BELINDA WELLS [facility] Unavailable Unavailable [facility], Unavailable Unavailable PLL[facility], [facility] Unavailable Unavailable LAB, [facility] CARISSA COURTNEY, Unavailable Unavailable CARISSA COURTNEY [facility] Unavailable Unavailable EMERGENCY PHYS, [facility] SUHAIL ODOM, Unavailable Unavailable SUHAIL ODOM [facility], Unavailable Unavailable [facility] Unavailable Unavailable #[id number], [id number] # Unavailable Unavailable [id number], [facility] # [id number] [id number], Unavailable Unavailable [id number] Unavailable Unavailable AGENCY, [facility] Purpose Continuity of Care Document - [...] IMMUNIZATIO INTERNAL N MED Z1231 ENCOUNTER 12-12-2016 [facility] MEDICAL MAMMO MALIG IMAGING ASS NEOPLASM BREAST R300 DYSURIA 11-02-2016 [facility] INTERNAL MED B182 CHRONIC 08-30-2016 [place] [facility] [facility] HEPATITIS C FOUNDATION I10 ESSENTIAL 08-18-2016 [facility] HYPERTENSIO INTERNAL N MED J310 CHRONIC 08-18-2016 [facility] [place] INTERNAL MED J309 ALLERGIC 07-03-2016 [facility] RHINITIS PHYSICIANS UNSPECIFIED GROUP J320 CHRONIC 07-03-2016 [facility] MAXILLARY PHYSICIANS SINUSITIS GROUP J342 DEVIATED 07-03-2016 [facility] NASAL PHYSICIANS SEPTUM GROUP R040 EPISTAXIS 02-06-2016 [facility] J322 CHRONIC 01-06-2016 [facility] SINUSITIS J329 CHRONIC 01-06-2016 COMM[facility]ITY SINUSITIS ANESTH OF UNSPECIFIED THE [facility] D126 BENIGN 01-03-2016 [facility] NEOPLASM OF PHYSICIANS COLON GROUP UNSPECIFIED J40 BRONCHITIS 12-20-2015 [facility] NOT PHYSICIANS SPECIFIED GROUP ACUTE OR CHRONIC Y12809 ENCOUNTER 12-20-2015 [place] [facility] PREPROCEDUR INC AL CARIOVASCUL AR EXAM S33532 ENCOUNTER 12-20-2015 [place] [facility] PRE[facility]ED[facility] INC AL LABORATORY EXAM D122 BENIGN 12-14-2015 [facility] NEOPLASM OF LLC ASCENDING COLON D125 BENIGN 12-14-2015 [facility] NEOPLASM OF PHYSICIANS SIGMOID GROUP COLON K529 NONINFECTIV 12-14-2015 [facility], E LLC GASTROENTER ITIS & COLITIS UNS K633 ULCER OF 12-14-2015 [facility] INTESTINE PHYSIC[facility]ANS GROUP K635 POLYP OF 12-14-2015 [facility] COLON LLC K644 RESIDUAL 12-14-2015 [facility] HEMORRHOIDA PHYSICIANS L SKIN TAGS GROUP Z1211 ENCOUNTER 12-14-2015 [facility] SCREENING PHYSICIANS MALIGNANT GROUP NEOPLASM OF COLON J323 CHRONIC 12-10-2015 [place] [facility] SINUS[facility]IS INC R928 OTH ABNORM 12-07-2015 [facility] INCONCLUSIV IMAGING ASS E FIND ON DX IMAG BREAST M2669 OTHER 11-29-2015 [facility] SPECIFIED PHYSICIANS DISORDER GROUP TEMPOROMAND IBULAR JOINT J0130 ACUTE 11-15-2015 [facility]PHENOIDAL [facility] SINUSITIS INTERNAL UNSPECIFIED MED S07656 ENCOUNTER 11-15-2015 [facility] 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 RTN W/O ABNORMAL FIND R079 CHEST PAIN 11-11-2015 [facility] UNSPECIFIED [facility]YSICIANS, [facility] R51 HEADACHE 11-11-2015 [facility] Z720 TOBACCO USE 11-11-2015 [facility] P J029 ACUTE 09-23-2015 [facility] PHARYNGITIS [facility] INTERNAL UNSPECIFIED MED H6591 UNSPECIFIED 01-21-2015 [facility] NONSUPPURAT INTERNAL KAREN OTITIS MED MEDIA RT EAR [id number] PAIN IN 01-21-2015 [facility] RIGHT HIP VAL[facility] INTERNAL MED R938 ABNORMAL 01-21-2015 [place] FIND ON DX MEDICAL IMAGING OT IMAGING ASS SPEC BODY STRCT 96499 CHRONIC 12-29-2014 [place] [facility] HEPAT[place]IS C SERV WITHOUT FOUNDATION MENTION HEPATIC COMA 5715 CIRRHOSIS 12-29-2014 [place] [facility]ICAL OF LIVER SERV WITHOUT FOUNDATION MENTION [...] USE [facility] PRESENTING INC [facility] 34438 UNSPECIFIED 09-16-2014 [place] [facility] VIRAL SERV HEPATITIS C FOUNDATION W/O HEPATIC COMA 5920 CALCULUS OF 09-16-2014 [facility] 7804 DIZZINESS 07-30-2014 [facility] GIDDINESS IM[facility]ING ASS 7840 HEADACHE 07-30-2014 [facility] V6709 FOLLOW-UP 03-03-2014 [facility] EXAMINATION PHYSICIANS FOLLOWING GROUP OTHER SURGERY 5728 OTHER 03-02-2014 [place] [facility] SEQUEL[place] OF SERV CHRONIC FOUNDATION LIVER DISEASE 6823 CELLULITIS 02-08-2014 [facility] PH[facility]ICIANS OF UPPER GROUP ARM AND FOREARM 6829 CELLULITIS 02-06-2014 [facility] [place] UNSPECIFIED SITE 59683 OTHER 01-26-2014 [place] SPECIFIED [facility]PITAL DISORDER OF STOMACH AND DUODENUM 5723 PORTAL 01-26-2014 [facility] N V7189 OBSERVATION 01-26-2014 [place] OTHER HOSPITAL SPECIFIED SUSPECTED CONDITIONS 5739 UNSPECIFIED 12-26-2013 [place] [facility] DISORDER SERV OF LIVER FOUNDATION 6825 CELLULITIS 12-25-2013 [facility] EMERGENCY OF [place] PHYS 94674 OTHER 09-29-2013 [place] [facility] FATIGUE INC V0262 HEPATITIS C 09-29-2013 [place] [facility] INC V700 ROUTINE 09-29-2013 [place] [facility] EXAM@HEALTH CARE FACL V7612 OTHER 09-29-2013 [place] SCREENING MEDICAL MAMMOGRAM IMAGING ASS V7231 ROUTINE 09-24-2013 [facility] JR ROZ AL EXAMINATION 93775 ACUT 05-18-2012 [place] [facility] TIS W/O LES INC RENAL MEDULRY NECROS 10267 UNSPECIFIED 05-18-2012 [facility] TIS 4660 ACUTE 12-19-2011 [place] BRONCHITIS [facility] INC 490 BRONCHITIS 12-19-2011 MARY ANN SHAISTA NOT SPECIFIED ACUTE OR CHRONIC 47401 OTHER 12-19-2011 [facility] PULMONARY AMBULANCE INSUFFICIEN SERVICE CY NEC 71122 ACUTE 12-19-2011 [facility] BRONCHOSPAS M 7862 COUGH 12-19-2011 [facility] 2181 INTRAMURAL 10-12-2011 EDWARD MEERA LEIOMYOMA OF UTERUS 6201 CORPUS 10-12-2011 EDWARD MEERA LUTEUM CYST OR HEMATOMA 6259 UNSPEC 10-12-2011 CHEYANNE MEERA SYMPTOM ASSOC W/FEMALE GENITAL ORGANS 2189 LEIOMYOMA 09-01-2011 [place] OF UTERUS, MEDICAL UNSPECIFIED IMAGING ASS 6202 OTHER AND 09-01-2011 [place] UNSPECIFIED MEDICAL OVARIAN IMAGING ASS CYST 52359 ABDOMINAL 09-01-2011 [place] PAIN RIGHT [facility] LOWER INC QUADRANT 5990 URINARY 08-25-2011 KATHARINA TAYLOR TRACT GARTH INFECTION SITE NOT SPECIFIED 36861 UNSPECIFIED 08-25-2011 KATHARINA TAYLOR VAGINITIS GARTH AND VULVOVAGINI TIS 13656 OLD 10-28-2010 [facility] DISRUPTION PHYSICIANS OF ANTERIOR GROUP CRUCIATE LIGAMENT 01609 VISUAL 10-13-2010 [facility] DISCOMFORT VALLEY INTERNAL MEDI 01858 PAIN IN 10-13-2010 [facility] JOINT, VALLEY LOWER LEG INTERNAL MEDI 8449 SPRAIN&STRA 10-03-2010 [place] IN OF [facility] UNSPECIFIED INC SITE OF KNEE&LEG 9596 INJURY 10-03-2010 [place] OTHER AND MEDICAL UNSPECIFIED IMAGING ASS HIP AND THIGH 9597 INJURY 10-03-2010 [facility] OTHER&UNSPE EMERGENCY CIFIED KNEE SERVICES LEG ANKLE&FOOT 3674 PRESBYOPIA 09-22-2010 [facility] 47681 ASTHMA, 06-28-2010 [facility] UNSPECIFIED [facility]ERGENCY , SERVICES UNSPECIFIED STATUS 5283 CELLULITIS 04-14-2010 [place] AND ABSCESS VALLEY OF ORAL INTERNAL SOFT MEDI TISSUES 1129 CANDIDIASIS 04-04-2010 [facility] OF VALLEY UNSPECIFIED INTERNAL SITE MEDI 8603 TRAUMATIC 04-04-2010 [facility] WITH OPEN AGENCY WOUND INTO THORAX 17026 METHICILLIN 03-17-2010 [facility] SUSCEPTIBLE INTERNAL STAPH INF MED CCE & UNS SITE 12114 METHICILLIN 03-17-2010 COMM[facility] RESISTANT ANESTH OF STAPHYLOCOC THE BLUE CUS AUREUS 96466 FEVER 03-16-2010 C BIN UNSPECIFIED JERE TRUJILLO PSC 26815 TRICHOMONAL 02-14-2010 PATHOLOGY & CYTOLOGY VULVOVAGINI LAB TIS 6160 CERVICITIS 02-14-2010 PATHOLOGY & AND CYTOLOGY ENDOCERVICI LAB TIS 7242 LUMBAGO 02-14-2010 [facility] INTERNAL MED 51315 DISPLCMT 11-04-2009 [place] LUMBAR MEDICAL INTERVERT IMAGING ASS DISC W/O MYELOPATHY 7231 CERVICALGIA 11-04-2009 [facility] 7234 BRACHIAL 11-04-2009 [place] NEURITIS OR [facility] INC RADICULITIS NOS 13202 ABDOMINAL 11-04-2009 [place] PAIN, [facility] GENERALIZED INC 3540 CARPAL 10-28-2009 [facility] TUNNEL [facility] SYNDROME INTERNAL MED 3562 HEREDITARY 10-21-2009 [place] SENSORY [facility] NEUROPATHY INC 98924 CHEST PAIN 10-15-2009 [facility] UNSPECIFIED VALLEY INTERNAL MED V493 SENSORY 10-15-2009 [facility] PROBLEMS [facility] WITH LIMBS INTERNAL MED V571 OTHER 07-07-2008 [place] PHYSICAL [facility] THERAPY INC 47614 OTHER ACUTE 06-04-2008 [facility] POSTOPERATI ANESTHESIA VE PAIN PSC 7172 DERANGEMENT 06-04-2008 [place] MEDICAL OF SERV POSTERIOR FOUNDATIO HORN OF MEDIAL MENISCUS 8442 SPRAIN AND 06-04-2008 [facility] STRAIN OF H CRUCIATE ANESTHESIA LIGAMENT OF [facility] KNEE 8360 TEAR MEDIAL 05-21-2008 [place] [facility] OR MENISCUS INC KNEE CURRENT 4739 UNSPECIFIED 04-07-2008 [place] SINUSITIS [place] INTERNAL MED 80293 UNSPECIFIED 04-07-2008 [facility] ARTHROPATHY INTERNAL , LOWER LEG MED 44686 UNSPECIFIED 03-09-2008 [place] ABNORMAL MEDICAL MAMMOGRAM IMAGING ASSOCIATES 5939 UNSPECIFIED 01-21-2008 [place] DISORDER MEDICAL OF KIDNEY IMAGING AND URETER ASSOCIATES 5952 OTHER 01-21-2008 [place] CHRONIC [facility] CYSTITIS INC 2724 OTHER AND 12-16-2007 [place] UNSPECIFIED [place] INTERNAL HYPERLIPIDE MED JESICA 14558 OTHER 12-16-2007 [place] CHRONIC VALLEY PAIN INTERNAL MED V5883 ENCOUNTER 12-16-2007 [place] FOR [facility] THERAPEUTIC INTERNAL DRUG MED MONITORING V762 SCREENING 09-25-2007 [facility] MALIGNANT NEOPLASM OF THE CERVIX 79365 OTHER 09-18-2007 [facility] ANXIETY [place] STATES INTERNAL MED 4778 ALLERGIC 09-18-2007 [place] RHINITIS [place] DUE TO INTERNAL OTHER MED ALLERGEN 70692 ESOPHAGEAL 09-18-2007 [facility] REFLUX [place] INTERNAL MED Medications Na ND Rx Da Fi Fi Am Da Di Ph RX Ph St me C No te ll ll ou ys ag ar # ys at rm s nt no ma ic us Or Da si cy ia de te s n re d HY 68 09 10 [address] 64 -2 -2 .0 00 L- ti OC 50 4- 0- 00 07 MA ve HL 51 20 20 48 RT OR 05 17 17 88 OT 4 45 PH HI AR AZ MA ID CY E 25 #5 91 MG TA B FL 60 09 10 16 30 00 CA Ac UT 43 -2 -1 .0 00 L- ti IC 20 0- 3- 00 07 MA ve 26 20 20 51 RT ON 41 17 17 08 E 5 05 PH [place] AR OP MA CY 50 #5 MC 91 G SP RA Y EQ 49 09 10 60 30 00 CA Ac 03 -2 -1 .0 00 L- ti AC 50 0- 3- 00 08 MA ve ID 54 20 20 84 RT 67 17 17 12 RE 1 34 PH DU AR CE MA R CY CO MP #5 LE 91 T TB CH W MORENO 53 08 09 6. 3 00 CA Ac LF 74 -0 -0 00 00 L- ti AM 60 3- 1- 0 07 MA ve ET 27 20 20 50 RT HO 20 17 17 21 XA 5 30 PH ZO AR LE MA -T CY MP #5 DS 91 TA BL ET BR 00 07 08 60 30 00 CA Ac EO 17 -3 -2 .0 00 L- ti 30 0- 5- 00 07 MA ve EL 88 20 20 48 RT LI 21 17 17 88 PT 0 81 PH A AR 20 MA 0- CY 25 #5 MC 91 G IN H FL 60 07 08 16 30 00 CA Ac UT 43 -3 -2 .0 00 L- ti IC 20 0- 5- 00 07 MA ve 26 20 20 48 RT ON 41 17 17 88 E 5 49 PH [place] AR OP MA CY 50 #5 MC 91 G SP RA Y HY 68 06 07 [address] 64 -1 -1 .0 00 L- ti OC 50 8- 4- 00 07 MA ve HL 51 20 20 48 RT OR 05 17 17 88 OT 4 45 PH HI AR AZ MA ID CY E 25 #5 91 MG TA B [place] 00 06 07 18 90 00 CA Ac OP 37 -1 -1 0. 00 L- ti RA 80 8- 4- 00 07 MA ve NO 18 20 20 0 48 RT LO 30 17 17 88 L 1 44 PH 20 AR MA MG CY TA #5 BL 91 ET VE 00 05 06 36 30 00 CA Ac NT 17 -1 -1 .0 00 L- ti OL 30 9- 6- 00 07 MA ve IN 68 20 20 48 RT 22 17 17 88 HF 0 46 PH A AR 90 MA CY MC G #5 IN 91 CORNEJO LE R FL 60 05 06 16 30 00 CA Ac UT 43 -1 -1 .0 00 L- ti IC 20 9- 6- 00 07 MA ve 26 20 20 48 RT ON 41 17 17 88 E 5 49 PH [place] AR OP MA CY 50 #5 MC 91 G SP RA Y BR 00 05 06 60 30 00 CA Ac EO 17 -1 -1 .0 00 L- ti 30 9- 6- 00 07 MA ve EL 88 20 20 48 RT LI 21 17 17 88 PT 0 81 PH A AR 20 MA 0- CY 25 #5 MC 91 G IN H [place] 23 05 06 60 30 00 CA Ac OP 15 -1 -0 .0 00 L- ti RA 50 6- 9- 00 07 MA ve NO 11 20 20 47 RT LO 10 17 17 85 L 1 17 PH 20 AR MA MG CY TA #5 BL 91 ET HY 68 05 06 30 [address] [facility] [address] 64 -1 -0 .0 00 L- ti OC 50 6- 9- 00 07 MA ve HL 51 20 20 48 RT OR 05 17 17 23 OT 4 36 PH HI AR AZ MA ID CY E 25 #5 91 MG TA B MO 31 05 06 30 30 00 [facility] NT 72 -1 -0 .0 00 L- ti EL 20 7- 9- 00 07 MA ve [place] 72 20 20 48 RT 61 17 17 23 T 0 56 PH SO AR D MA 10 CY MG #5 91 TA BL ET HY 16 04 05 30 30 [address] [facility] [address] 72 -1 -1 .0 00 L- ti OC 90 4- 2- 00 07 MA ve HL 18 20 20 48 RT OR 31 17 17 23 OT 7 36 PH HI AR AZ MA ID CY E 25 #5 91 MG TA B MO 31 04 05 30 30 00 [facility] NT 72 -1 -1 .0 00 L- ti EL 20 4- 2- 00 07 MA ve [place] 72 20 20 48 RT 69 17 17 23 T 0 56 PH SO AR D MA 10 CY MG #5 91 TA BL ET [place] 00 03 04 60 30 00 [facility] OP 37 -2 -2 .0 00 L- ti RA 80 5- 1- 00 07 MA ve NO 18 20 20 47 RT LO 30 17 17 85 L 1 17 PH 20 AR MA MG CY TA #5 BL 91 ET AM 00 02 03 30 10 00 [facility] OX 09 -2 -2 .0 00 L- ti IC 33 8- 4- 00 07 MA ve IL 10 20 20 47 RT LI 90 17 17 34 N 5 23 PH 50 AR 0 MA MG CY CA #5 PS 91 UL E HY 00 02 03 [address] 40 -2 -2 .0 00 L- ti OC 60 8- 4- 00 02 MA ve OD 12 20 20 23 RT ON 40 17 17 93 -A 1 10 PH CE AR TA MA OK CY NO PH #5 91 7. 5- 32 5 IB 68 02 03 30 8 00 CA Ac UP 64 -2 -2 .0 00 L- ti RO 50 8- 4- 00 07 MA ve FE 53 20 20 47 RT N 05 17 17 34 60 9 20 PH 0 AR MG MA CY TA BL #5 ET 91 [place] 23 02 03 60 30 00 [place] Ac OP 15 -1 -1 .0 00 L- ti RA 50 4- 0- 00 07 MA ve NO 11 20 20 43 RT LO 10 17 17 26 L 1 36 PH 20 AR MA MG CY TA #5 BL 91 ET [place] 23 01 02 60 30 00 WA Ac OP 15 -1 -1 .0 00 L- ti RA 50 4- 0- 00 07 MA ve NO 11 20 20 43 RT LO 10 17 17 26 L 1 36 PH 20 AR MA MG CY TA #5 BL 91 ET [place] 23 12 01 60 30 00 WA [...] 0 14 7 WA 71 GA Ac [place] 37 -2 -3 .0 L- 13 IN ti OF 87 9- 0- 00 MA 26 EY ve LO 09 20 20 RT 8 XA 80 11 11 OK CI 1 PH CH N AR AE HC MA L L CY S 50 # 0 MG 10 05 TA 91 B ME 00 03 03 0 21 6 WA 71 GA Ac TH 60 -2 -3 .0 L- 13 IN ti YL 34 9- 0- 00 MA 26 EY ve [place] 59 20 20 RT 9 ED 31 11 11 OK NI 5 PH CH SO AR AE [...] 12 01 1 60 30 WA 71 OK Ac MO 09 -2 -1 .0 L- [...] RO 50 0- 0- 00 MA 10 OK ve FE 22 20 20 0 RT 3 E N 15 10 10 JR 60 9 PH 0 AR WI MG MA LL CY IA TA # M BL F ET 10 05 91 CI 00 12 12 0 20 10 CA 70 MC Ac [place] 37 -2 -2 .0 L- 99 KE ti OF 87 0- 0- 00 MA 10 OK ve LO 09 20 20 RT 6 E XA 80 10 10 JR CI 1 PH N AR WI HC MA LL L CY IA 50 # M 0 F MG 10 05 TA 91 B MORENO 53 12 12 0 20 10 WA 70 MC Ac LF 74 -2 -2 .0 L- 99 KE ti AM 60 0- 0- 00 MA 10 OK ve ET 27 20 20 RT 7 E HO 20 10 10 JR XA 5 PH ZO AR WI LE MA LL -T CY IA MP # M F DS 10 05 TA 91 BL ET LA 00 11 11 0 60 30 WA 70 OK Ac MO 09 -2 -2 .0 L- [...] IB 68 08 11 2 12 30 CA 70 MC Ac UP 64 -1 -1 0. L- 84 KE ti RO 50 6- 5- 00 MA 25 OK ve FE 22 20 20 0 RT 7 E N 15 10 10 JR 60 9 PH 0 AR WI MG MA LL CY IA TA # M BL F ET 10 05 91 IB 68 08 10 2 12 30 CA 70 MC Ac UP 64 -1 -0 0. L- 84 KE ti RO 50 6- 4- 00 MA 25 OK ve FE 22 20 20 0 RT 7 E N 15 10 10 JR 60 9 PH 0 AR WI MG MA LL CY IA TA # M BL F ET 10 05 91 VE 00 04 10 4 12 30 CA 70 BE Ac NL 09 -2 -0 0. L- 68 SS ti AF 37 8- 4- 00 MA 56 ON ve AX 38 20 20 0 RT 0 IN [address] E 1 PH EP HC AR HE L MA N 75 CY A # MG 10 TA 05 BL 91 ET 00 08 08 0 30 30 CA 70 MC Ac 37 -1 -3 .0 L- 84 KE ti 80 6- 1- 00 MA 25 OK ve 75 20 20 RT 6 E 19 10 10 JR 3 PH AR WI MA LL CY IA # M F 10 05 91 IB 68 08 08 2 12 30 CA 70 MC Ac UP 64 -1 -3 0. L- 84 KE ti RO 50 6- 1- 00 MA 25 OK ve FE 22 20 20 0 RT 7 E N 15 10 10 JR 60 9 PH 0 AR WI MG MA LL CY IA TA # M BL F ET 10 05 91 VE 00 04 04 4 12 30 CA 70 BE Ac NL 09 -2 -2 0. L- 68 SS ti AF 37 8- 8- 00 MA 56 ON ve AX 38 20 20 0 RT 0 IN [address] E 1 PH EP HC AR HE L MA N 75 CY A # MG 10 TA 05 BL 91 ET ME 00 04 04 0 21 6 CA 70 GA Ac TH 60 -1 -1 .0 L- 66 IN ti YL 34 2- 3- 00 MA 41 EY ve [place] 59 20 20 RT 7 ED 31 10 10 OK NI 5 PH CH SO AR AE LO MA L NE CY S 4 # MG 10 05 DO 91 SE PK CI 00 04 04 0 14 7 WA 70 GA Ac KY 37 -1 -1 .0 L- 66 IN ti OF 87 2- 3- 00 MA 41 EY ve LO 09 20 20 RT 8 XA 80 10 10 OK CI 1 PH CH N AR AE HC MA L L CY S 50 # 0 MG 10 05 TA 91 B [place] 37 11 02 02 30 30 WA [...] A MG #5 91 TA BL ET [place] 37 11 12 01 30 30 WA [...] A CA #5 PS 91 UL E [place] 37 11 11 00 30 30 WA [...] TR 30 2- 4- 00 MA 62 OK ve IG 03 20 20 0 RT [...] MA E TC CY H #5 91 [place] 37 07 04 04 30 30 WA [...] RT AR T MA CY #5 91 [place] 68 03 03 00 20 5 WA [...] TH MA Y CY D #5 91 [place] 37 07 01 03 30 30 WA [...] SA L #5 SP 91 RA Y [place] 37 07 09 02 30 30 WA [...] PH DI AR MA CY #5 91 [place] 37 07 08 01 30 30 WA [...] CY MG #5 91 TA BL ET [place] 37 07 08 00 30 30 WA [...] CY A TA BL #5 ET 91 [place] 37 06 07 00 30 30 WA [...] Procedures Procedure DOS Code Location Performer Comment [facility] [place] [facility] 0 [facility] W/DRAINAG [facility] INC E SKIN&SUBC UTANEOUS TISSUE [facility] [place] [facility] W/DRAINAG INC INC E SKIN&SUBC UTANEOUS TISSUE Encounters Encounter Start End Date Code Location Performer Type Date [facility] [place] [facility] [place] [facility] [place] [facility] 6 [facility] [place] [facility] [place] [facility] [place] [facility] 6 [facility] [place] [facility] 5 5 [facility] [place] [facility] 5 5 [facility] [place] [facility] 5 [facility] [place] [facility] [place] [facility] 5 [facility] [place] [facility] [place] [facility] [place] [facility] [place] [facility] 5 5 [facility] [place] [facility] [place] [facility] [place] [facility] 4 4 [facility] [place] [facility] 3 3 [facility] [place] [facility] 2 2 [facility] [place] [facility] 2 2 [facility] [place] [facility] 1 1 [facility] [place] - [facility] 1 [facility]PATIEN INC [facility], 1 1 HOME OUTPATIEN [facility] 0 0 HOME [facility]PATIEN [facility] [place] - [address] [facility] [place] - 0 0 [facility] [place] [facility] 0 0 [facility] [place] [facility] 0 0 [facility] [place] [facility] 0 0 [facility] [place] [facility] 9 9 [facility] [place] [facility] 9 9 [facility] [place] [facility] 9 9 [facility] [place] [facility] [address] [facility] [place] [facility] [address] [facility] [place] [facility] 8 8 [facility] [place] [facility] 8 8 [facility] [place] - [address] [facility] [place] [facility] [address] [facility] [place] - 8 8 [facility]
--- OUTSIDE RECORDS SUMMARY | 2017-02-15 18:39 | External Medical Summary Rpt | CCD ---
Author Author , BRIAN Organization BRIAN Address Unknown Phone [email or web address] Support Name Relationship Address Phone MARYLOU, Next Of Kin Unknown Unavailable VERITO Immunization Name Date Rout CVX Reac Dose Comm Prov Is Faci e tion ent ider Refu lity Give sed n Infl 09-2 0.5 Hist PD20 No PD20 uenz 0-20 mL oric 255 255 a 17 al Quad Info rmat W/Pr ion es - Sour ce Unsp ecif ied Tdap 06-0 Intr 115 999 Hist 1005 No 1005 , 7-20 amus oric 00 00 Adso 16 cula al rbed r Info rmat ion - Sour ce Unsp ecif ied Hep 04-0 Intr 43 1.00 Hist VI No H149 B, 6-20 amus mL oric E adul 16 cula al ANDR t r Info EA rmat ion - Sour ce Unsp ecif ied Hep 04-0 Intr 52 1.00 Hist VI No H149 A, 6-20 amus mL oric E adul 16 cula al ANDR t r Info EA rmat ion - Sour ce Unsp ecif ied Tdap 04-0 Intr 115 0.50 Hist VI No H149 , 6-20 amus mL oric E Adso 16 cula al ANDR rbed r Info EA rmat ion - Sour ce Unsp ecif ied Hep 03-0 Intr 8 999 Hist [facility] No [facility] B, 3-20 amus oric 1 1 ped/ 16 cula al adol r Info rmat ion - Sour ce Unsp ecif ied
--- OUTSIDE RECORDS SUMMARY | 2017-02-15 18:39 | External Medical Summary Rpt | CCD ---
Author Author , BRIAN Organization BRIAN Address Unknown Phone [email or web address] Support Name Relationship Address Phone MARYLOU, Next [...]
--- OUTSIDE RECORDS SUMMARY | 2017-02-15 18:39 | External Medical Summary Rpt ---
Author Author [employer], [employer] Organization [employer] Address Unknown Phone Unavailable Results Comprehensive metabolic 2000 panel in Serum or Plasma Observa Value Referen Units Interpr Notes Date tion ce etation Range Albumin/G 1.1 - 1.8 No Low No August 18 lobulin informati informati 2016 [Mass on in on in 10:47 AM ratio] in source source Serum or data data Plasma Albumin 3.4 - 5.0 gm/dL Normal No August 18 [Mass/vol informati 2016 ume] in on in 10:47 AM Serum or source Plasma data Alkaline 46 - 116 U/L Normal No August 18 phosphata informati 2016 se on in 10:47 AM [Enzymati source c data activity/ volume] in Serum or Plasma Bilirubin 0.2 - 1.0 mg/dL Normal No August 18 .total informati 2016 [Mass/vol on in 10:47 AM ume] in source Serum or data Plasma Urea 7 - 18 mg/dL Normal No August 18 nitrogen informati 2016 [Mass/vol on in 10:47 AM ume] in source Serum or data Plasma Calcium 8.5 - mg/dL Normal No August 18 [Mass/vol 10.1 informati 2016 ume] in on in 10:47 AM Serum or source Plasma data Chloride 98 - 107 mmoL/L Normal No August 18 [Moles/vo informati 2016 lume] in on in 10:47 AM Serum or source Plasma data Carbon 21.0 - mmoL/L Normal No August 18 dioxide, 32.0 informati 2016 total on in 10:47 AM [Moles/vo source lume] in data Serum or Plasma Creatinin 0.55 - mg/dL Normal No August 18 e 1.02 informati 2016 [Mass/vol on in 10:47 AM ume] in source Serum or data Plasma Estimated 59- ML/MIN Low REFERENCE August 18 RANGE: 2017 glomerula >60 10:47 AM r ML/MIN/1. filtratio 73 SQUARE n rate METERSIf (GF this patient is -A merican, then multiply theresult by 1.210. Globulin 1.3 - 3.2 gm/dL High No August 18 [Mass/vol informati 2016 ume] in on in 10:47 AM Serum source data Glucose 74 - 106 mg/dL Normal No August 18 [Mass/vol informati 2016 ume] in on in 10:47 AM Serum or source Plasma data Potassium 3.5 - 5.1 mmoL/L Normal No August 18 inform2016 [Moles/vo on in 10:47 AM lume] in source Serum or data Plasma Sodium 136 - 145 mmoL/L Normal No August 18 [Moles/vo informati 2016 lume] in on in 10:47 AM Serum or source Plasma data Aspartate 15 - 37 U/L Normal No August 182016 aminotran on in 10:47 AM sferase source [Enzymati data c activity/ volume] in Serum or Plasma Alanine 12 - 78 U/L Normal No August 18 aminotran 2016 sferase on in 10:47 AM [Enzymati source c data activity/ volume] in Serum or Plasma Protein 6.4 - 8.2 gm/dL High No August 18 [Mass/vol informati 2016 ume] in on in 10:47 AM Serum or source Plasma data Lipid 1996 panel in Serum or Plasma Observa Value Referen Units Interpr Notes Date tion ce etation Range Cholester < 200 mg/dL High No August 18 ol 2016 [Moles/vo on in 10:47 AM lume] in source Unspecifi data ed specimen Cholester 40 - 60 MG/DL Normal No August 18 ol in HDL 2016 on in 10:47 AM [Mass/vol source ume] in data Serum or Plasma Cholester 0 - 130 mg/dL Normal No August 18 ol in LDL 2016 on in 10:47 AM [Mass/vol source ume] in data Serum or Plasma by calculati on Triglycer 30 - 200 mg/dL High No August 18 irvin 2016 [Moles/vo on in 10:47 AM lume] in source Serum or data Plasma Cholester 0 - 40 No High No August 18 ol in informati inform2016 VLDL on in on in 10:47 AM [Mass/vol source source ume] in data data Serum or Plasma CBC W Auto Differential panel in Blood Observa Value Referen Units Interpr Notes Date tion ce etation Range Basophils 0 - 0.2 K/MM3 Normal No August 18 inform2016 [#/volume on in 10:47 AM ] in source Blood by data Automated count Basophils 0.1 - 2.0 % Normal No August 18 / inform2016 leukocyte on in 10:47 AM s in source Blood by data Automated count Eosinophi 0.0 - 0.4 K/mm3 Normal No August 18 ls 2016 [#/volume on in 10:47 AM ] in source Blood by data Automated count Eosinophi 0.1 - % Normal No August 18 ls/100 12.0 inform2016 leukocyte on in 10:47 AM s in source Blood by data Automated count Granulocy 1.8 - 7.8 K/mm3 Normal No August 18 kulwant 2016 [#/volume on in 10:47 AM ] in source Blood by data Automated count Granulocy 37.0 - % Normal No August 18 kulwant/100 80.0 2016 leukocyte on in 10:47 AM s in source Blood by data Automated count Hematocri 37.0 - % Normal No August 18 t [Volume 47.0 ati 2016 on in 10:47 AM Fraction] source of Blood data Hemoglobi 12.2 - g/dL Normal No August 18 n 16.2 inform2016 [Mass/vol on in 10:47 AM ume] in source Blood data Lymphocyt 0.7 - 4.5 K/mm3 Normal No August 18 es informati 2016 [#/volume on in 10:47 AM ] in source Unspecifi data ed specimen by Automated count Lymphocyt 10 - 50.0 % Normal No August 18 es informati 2016 [#/volume on in 10:47 AM ] in source Unspecifi data ed specimen by Automated count Erythrocy 27 - 31.2 pg Normal No August 18 te mean 2016 corpuscul on in 10:47 AM ar source hemoglobi data n [Entitic mass] Erythrocy 31.8 - g/dl Normal No August 18 te mean 35.4 inform2016 corpuscul on in 10:47 AM ar source hemoglobi data n concentra tion [Mass/vol ume] by Automated count Erythrocy 82.2 - fl Normal August 18 te mean 97.8 2016 corpuscul on in 10:47 AM ar volume source [Entitic data volume] by Automated count Monocytes 0.1 - 1.0 K/mm3 Normal No August 18 inform2016 [#/volume on in 10:47 AM ] in source Blood by data Automated count Monocytes 1.7 - 9.3 % Normal No August 18 /100 2016 leukocyte on in 10:47 AM s in source Blood by data Automated count Platelet 7.4 - fl Low No August 18 mean 10.4 2016 volume on in 10:47 AM [Entitic source volume] data in Blood by Automated count Platelets 142 - 424 K/mm3 Normal No August 182016 [#/volume on in 10:47 AM ] in source Blood data Erythrocy 4.2 - 5.4 M/mm3 Normal No August 18 kulwant 2016 [#/volume on in 10:47 AM ] in source Amniotic data fluid Erythrocy 11.5 - % Normal No August 18 te 17.5 2016 distribut on in 10:47 AM ion width source [Entitic data volume] by Automated count Leukocyte 4.8 - K/MM3 Normal August 18 s 10.8 2016 [#/volume on in 10:47 AM ] in source Blood data
[2017-02-15 18:42] LABS: URINE BILIRUBIN - DIPSTICK NEGATIVE (NEG)
[2017-02-15 18:43] LABS: URINE BLOOD NEGATIVE (NEG)
--- NOTE | 2017-02-15 18:48 | Urgent Treatment Center Report ---
History of Present Issue Date/Time Seen by Provider 02/15/17 1841 Visit Reason Pt arrived:Walked Presenting Problem:PT C/O RT FLANK PAIN SINCE 1500 TODAY Location if Accident: Onset of symptoms date/time:/ or onset unknown for:MEDICAL HX UNKNOWN Have you (or family members/close friends) recently traveled outside the [place]? N If Yes, where/when: Have you had exposure to infectious disease within the past month? TB? Other? Specify: c/o "pain in my abdomen and back". Report was here at hospital with mother around 11-12 this morning when right lower back pain started. No injury or trauma. Since that time, pain has progressed and not seems to be "going straight through" to abdomen. Constant "sharp and stabbing" pain that is worse when supine or standing but improved by sitting. Hasn't taken or tried anything for pain. Would have come sooner but couldn't find someone to get her grandbabies she was watching. Standing pain 10/10 "easily. Brings me to tears. I have had kidney stones and they weren't this bad". Mild dysuria "but not that bad". LMP over one year ago. Has been told she is perimenopausal. Denies fever, nausea, vomiting. When pain intensifies, pt reports she is diaphoretic. Hx csxs and tubal ligaton. Source patient Exam Limitations no limitations ALLERGIES Uncoded Allergies: TUBERCULIN (11/11/15) Home Medications Reported Medications Albuterol Sulfate (Ventolin Hfa) 1 PUFF IH Q46HP PRN COPD #18 PUFF Fluticasone Propionate (Flonase 50 Mcg Nasal [place]) 1 SPRAY NA BID Propranolol Hcl (Inderal) 20 MG PO BID #60 History Medical History General CAD? No Angina: No [place]: No Hypertension? No Hyperlipidemia? No CHF? No DVT? No PE? No COPD? Yes Asthma? No Anemia? No GERD? Yes Gastric ulcers? No GI Bleed? No Hernia? Yes Thyroid Problems? No Hypothyroidism? No CVA? No Seizures? Yes Diabetes? No Renal Insuffiency? No UTI? No Stones? No GB Disease: No Nephritic Syndrome? No Asplenia? No Hepatitis? Yes Sickle Cell Disease? No Arthritis? No Migraines? No Cataracts? No Glaucoma? No MRSA? Yes HIV? No TB? No Anxiety? No Depression? No Cancer? No More? No Immunization HX DT/Tetanus 1-4 Years Ago Flu 02/09/14 Pneumonia 02/09/14 Surgical Hx Previous Surgery?Y X2 LEFT KNEE- LIGAMENT TUBAL LIGATION Social History Smoking Hx Smoker: Current Every Day Smoker Tobacco: Yes Type Cigarettes Packs/day < 1 Pack Alcohol Alcohol: No Review of Systems All Other Systems Reviewed and Negative (as appropriate for CC) Constitutional see HPI, denies malaise, denies weakness Respiratory denies shortness of breath Cardiovascular denies chest pain, denies palpitations, denies other (change in pain with breathing) Gastrointestinal see HPI Genitourinary see HPI. denies: discharge, frequency, hesitancy, hematuria, other (hx ovarian cyst). Musculoskeletal see HPI, denies muscle pain, denies muscle stiffness Skin denies change in color, denies lesions, denies lumps, denies rash Psychiatric/Neurological denies headache, denies other (dizziness) Physical Exam Vital Signs Vital Signs Date Time Temp Pulse Resp B/P Pulse O2 O2 Flow FiO2 Ox Delivery Rate 02/15 1834 97.9 83 20 138/97 98 General Appearance mild distress (guarding movement) Respiratory Status Yes: non tender chest. No: respiratory distress. Lung Sounds anterior: lungs clear. posterior: lungs clear. bilateral: lungs clear. Cardiovascular regular rate/rhythm, no peripheral edema, no murmur Gastrointestinal normal bowel sounds, soft, no organomegaly, no pulsatile mass, rebound (RUQ only), tenderness (RUQ,RLQ, epigastric) Back normal inspection, no vertebral tenderness, CVA tenderness (R) Neurologic alert, oriented x 3 Skin normal color, warm/dry, diaphoresis (during abdominal exam) Medical Decision Making LABS/Meds/Orders Pt receiving controlled substance in ED? No Results/Orders Laboratory Tests 02/15/171837: Urine Color YELLOW, Urine Appearance Clear, Urine pH 5.5, Ur Specific [place] >= 1.030, Urine Protein 30, Urine Ketones NEGATIVE, Urine Blood NEGATIVE, Urine Nitrate NEGATIVE, Urine Bilirubin NEGATIVE, Urine Urobilinogen 1.0, Ur Leukocyte Esterase NEGATIVE, Urine Glucose NEGATIVE Orders Procedure Date/time Status [facility] URINE DIPSTICK 02/15 1838 Complete Progress [facility] Progress Notes 1 Date 02/15/17 Time 1850 Comment Discussed HPI, exam, u/a and possible differentials with patient. patient agreeable to transfer to ER for further evaluation and management. [facility] Progress Notes 2 Date 02/15/17 Time 1856 Comment Report called to MATTHEW Palmer RN. Room 9 available. Departure Departure Time of Disposition 1856 Disposition DC Home or Self Care(routine) Clinical Impression Primary Impression: Abdominal pain Qualifiers: Abdominal location: unspecified location Qualified Code: R10.9 - Unspecified abdominal pain Condition STABLE at 1858
[2017-02-15 19:37] LABS: HEMOGLOBIN 14.3 g/dL (12.2-16.2); LYMPH # 3.5 K/mm3 (0.7-4.5)
--- NOTE | 2017-02-15 20:13 | Emergency Room Report ---
History of Present Illness Time Seen by 1900 Presenting Problem in Triage Pt arrived:Walked Presenting Problem:RIGHT SIDE PAIN IN BELLY AND BACK FOR LAST 4-5 HOURS Onset of symptoms date/time:/ or onset unknown for:MEDICAL HX UNKNOWN Treatment Prior to Arrival: [employer] Provided by: Sepsis Risk Assessment: Temp: 98.5 B/P: 138/95 MAP: 109 Pulse: 72 Resp: 18 Recent fever? N Clinical Suspician of Infection? N Mental Status: 1 - Regular (Normal Baseline) Sepsis Risk:Low Sepsis Risk Have you (or family members/close friends) recently traveled outside the [place]? N If Yes, where/when: Have you had exposure to infectious disease within the past month? TB? Other? Specify: Source patient, RN notes reviewed, family, RN/MD Exam Limitations no limitations Comment This is a 51-year-old female presented emergency room with sudden onset of RIGHT flank/RIGHT upper quadrant abdominal pain, radiating to the RIGHT lower quadrant, possibly 5 hours prior to arrival. Patient has any nausea, vomiting, diarrhea or fever. Patient also denies any previous similar episodes in the past, recent travel or recent exposure to sick contacts. ALLERGIES Uncoded Allergies: NICOTINE PATCH (Mild, 02/15/17) Home Medications Reported Medications Albuterol Sulfate (Ventolin Hfa) 1 PUFF IH Q46HP PRN COPD #18 PUFF Fluticasone Propionate (Flonase 50 Mcg Nasal [place]) 1 SPRAY NA BID Propranolol Hcl (Inderal) 20 MG PO BID #60 History Medical History General CAD? No Angina: No [place]: No Hypertension? No Hyperlipidemia? No CHF? No DVT? No PE? No COPD? Yes Asthma? No Anemia? No GERD? Yes Gastric ulcers? No GI Bleed? No Hernia? Yes Thyroid Problems? No Hypothyroidism? No CVA? No Seizures? Yes Diabetes? No Renal Insuffiency? No End Stage Renal Disease? No UTI? No Stones? No GB Disease: No Nephritic Syndrome? No Asplenia? No Hepatitis? Yes Sickle Cell Disease? No Arthritis? No Migraines? No Cataracts? No Glaucoma? No MRSA? Yes HIV? No TB? No Anxiety? No Depression? No Cancer? No More? Yes Additional hx: TREATED FOR HEPATITIS AND RESOLVED Immunization Hx Ped.Immunizations UTD Yes DT/Tetanus 1-4 Years Ago Flu 02/09/14 Pneumonia 02/09/14 Surgical Hx Previous Surgery?Y X2 LEFT KNEE- LIGAMENT TUBAL LIGATION [employer] Hx LMP menopause Social History Smoking Hx Smoker: Current Some Day Smoker Tobacco: Yes Type Cigarettes Packs/day < 1 Pack Alcohol Alcohol: No Review of Systems All Other Systems Reviewed and Negative Gastrointestinal see HPI, abdominal pain, denies constipation, denies diarrhea, denies nausea, denies vomiting Physical Exam Vital Signs Vital Signs Date Time Temp Pulse Resp B/P Pulse O2 O2 Flow FiO2 Ox Delivery Rate 02/16 2128 97.7 62 18 143/90 99 02/15 2103 97.7 62 18 143/90 99 02/15 2051 20 02/15 1905 98.5 72 18 138/95 99 02/15 1834 97.9 83 20 138/97 98 General Appearance normal appearance, WD/WN, moderate distress Respiratory Status Yes: trachea midline, chest symmetrical, non tender chest. No: respiratory distress. Lung Sounds bilateral: normal breath sounds, lungs clear. Cardiovascular normal exam, regular rate/rhythm, no peripheral edema, no gallop, no JVD, no murmur, no rub, normal peripheral pulses Gastrointestinal normal bowel sounds, soft, no organomegaly, tenderness (RUQ, RLQ) Back normal inspection, no vertebral tenderness, gait normal, CVA tenderness (R) Extremities non-tender, normal range of motion, normal inspection Neurologic alert, kiln hand II-XII nml as tested, normal exam, oriented x 3 Mental status normal mood/affect Skin intact, normal color, warm/dry Medical Decision Making LABS/Meds/Orders Pt receiving controlled substance in ED? No Comment 2044-patient reevaluated appears in stable medical condition, no acute distress. Advised patient results obtained, need for follow-up with PCP for additional outpatient workup (gallbladder ultrasounds). Results/Orders Laboratory Tests 02/15/17 1930: Sodium 140, Potassium 3.2 L, Chloride 102, Carbon Dioxide 29, BUN 17, Creatinine 0.9, Estimated Creat Clear 120, Estimated GFR (MDRD) 66, Glucose 106, Calcium 9.1, Total Bilirubin 0.2, AST 18, ALT 25, Alkaline Phosphatase 97, Total Protein 8.0, Albumin 3.8, Globulin 4.2 H, Albumin/Globulin Ratio 0.9 L, Amylase 65, Lipase 208, WBC 11.0 H, RBC 4.81, Hgb 14.3, Hct 42.2, MCV 87.6, RDW 12.9, Plt Count 241, MPV 9.6, Gran % 58.0, Gran # 6.4, Lymphocytes % 32.0, Monocytes % 6.4, Eosinophils % 2.7, Basophils % 0.9, Lymphocytes # 3.5, Monocytes # 0.7, Eosinophils # 0.3, Basophils # 0.1, PUBS MCHC 34.0, MCH 29.8 02/15/171837: Urine Color YELLOW, Urine Appearance Clear, Urine pH 5.5, Ur Specific [place] >= 1.030, Urine Protein 30, Urine Ketones NEGATIVE, Urine Blood NEGATIVE, Urine Nitrate NEGATIVE, Urine Bilirubin NEGATIVE, Urine Urobilinogen 1.0, Ur Leukocyte Esterase NEGATIVE, Urine Glucose NEGATIVE Current Medication Orders Sig/Lakeisha Start time Last Medication Dose Route Stop Time Status Admin Ketorolac 0 .STK-MED ONE 02/16 2048 DC Tromethamine .ROUTE Ondansetron HCl 0 .STK-MED ONE 02/16 2048 DC .ROUTE Iopamidol 75 ML ONCE ONE 02/15 2045 DCD 02/15 IV 02/15 Ketorolac 30 MG ONCE ONE 02/15 2045 DC 02/15 Tromethamine IV 02/15 Ondansetron HCl 4 MG ONCE ONE 02/15 2045 DC 02/15 IV 02/15 Sodium Chloride 10 ML ONCE ONE 02/15 2045 DCD 02/15 IV 02/15 Sodium Chloride 10 ML PRN PRN 02/15 1915 DCD IV 02/16 1905 Orders Procedure Date/time Status DIET-NOTHING BY MOUTH 02/16 B Active SERUM , QUAL 02/[address] ABD/PELVIS REQ 02/15 1906 Complete IV SALINE LOCK 02/15 1906 Active LIPASE 02/15 1906 Complete CBC WITH AUTO DIFF 02/15 1906 Complete CHEM 12 PROFILE 02/15 1906 Complete AMYLASE 02/15 1906 Complete UTC URINE DIPSTICK 02/15 1838 Complete XRAY/CT/US XRAY/CT/US CT abdomen, pelvis CT interpretation by discussed w/radiologist (without IV contrast) CT Results see radiologist report, suggestive of gallbladder pathology, also indicative of RIGHT kidney nephrolithiasis Departure Departure Time of Disposition 2102 Disposition DC Home or Self Care(routine) Clinical Impression Primary Impression: RUQ abdominal pain Condition STABLE Referrals Naveen Lamb MD (Family): Tomorrow-Call Office Patient Instructions DI for Abdominal Pain-Adult Additional Instructions Please follow-up with Dr. Lamb in the morning, for additional outpatient workup. Discharge Counseling Counseled pt/family regarding diagnosis, test results, medications/RX, home care, follow up needs Comment Please follow-up with Dr. Lamb in the morning, for additional outpatient workup. Prescriptions Current Visit Scripts Etodolac 200 MG PO QIDP PRN pain #28 [facility] ED Critical Care Critical Care No at 0010
--- NOTE | 2017-02-15 21:01 | RADIOLOGY REPORT PS360 ---
CT ABD PELVIS W/ CONTRAST HISTORY: ABDOMINAL PAINright-sided pain. More right Flank pain type character per technologist Patient Age: 51 years: Female Ordering Physician: Toni Krause MD TECHNIQUE: Helical CT scanning performed at of pelvis with no oral nor IV contrast utilized. Sagittal coronal reconstructions on CT workstation COMPARISON :Previous CT abdomen pelvis 11/04/2009 with contrast FINDINGS Lung bases. Mild dependent atelectasis & with minor fibrotic changes most evident posterior lung bases most evident right lung base. Similar to previous study.. No significant acute findings otherwise. The heart is normal in size. Incidental note of very small stable fat-containing Bochdalek hernia//posterior diaphragmatic hernia. Unchanged not of current significance. . Abdomen/pelvis. Lack of oral and IV contrast decreases sensitivity.. Liver. A generous sized liver. Spleen. Stable. Satisfactory. Gallbladder. Contracted upper normal wall thickness. Likely due reflects lack of distention. If right quadrant symptoms consider gallbladder ultrasound. Common duct is generous caliber] 13 mm where it passes through the head of pancreas on caliber but this is unchanged since on the previous 2009 CT study. Pancreas appears stable. Adrenals. Right adrenal nodule 2.3 x 1.4 cm. Incrementally larger. A nonspecific density. 63 Hu. This soft tissue density is of indeterminate character and would benefit from follow-up- although its lack of significant progression over 7 years with certainty speak towards its more likely indolent or benign nature.. . GI TRACT. Esophagus and stomach unremarkable. Duodenal loop and proximal and distal small bowel appears satisfactory. Normal caliber. There is slight displacement small bowel loops to the right but no significant twisting or displacement felt to be present. Large bowel. Generous stool throughout the right and transverse colon with generous gas mildly distending the sigmoid colon but no significant bowel dilatation or obstruction. No wall thickening. The appendix is normal. Terminal ileum unremarkable. tract no obstructive uropathy. LEFT KIDNEY unremarkable. No calculi nor obstruction. Left ureter unremarkable. RIGHT KIDNEY. Minimal scarring again seen with scattered small calculi punctate nonobstructive upper pole right kidney. 2 small calculi upper pole each measuring ~2.5 mm noted.. Lower pole right kidney with tiny faint linear calculi barely evident. Pelvis. No free fluid. No adnexal masses. Ovaries normal size uterus moderate size. Urinary bladder. No significant findings. Phleboliths throughout the pelvic basin bilaterally similar to previous IMPRESSION: ...... No acute findings abdomen pelvis No discrete findings to account for right-sided pain. Appendix normal. No urinary tract obstruction . Right kidney with minimal scarring & tiny nonobstructive calculi at upper & lower pole right kidney.. Not of current or acute significance.. The gallbladder is contracted with upper normal wall thickness likely due to such. However if RUQ symptoms present consider gallbladder ultrasound .. Generous stool throughout right & transverse colon may reflect mild constipation.;. Generous gas at sigmoid colon but no wall thickening. No Significant acute findings. Stable incidental observations since 2010: ... Generous caliber common duct at head of pancreas.. Stable feature & unchanged as prior study 2009. ... Tiny fat-containing right posterior diaphragmatic Bochdalek hernia unchanged as well .
[2017-02-15] MEDS ORDERED: ETODOLAC200 MG PO (21:05)
[2017-02-15 21:28] VITALS: BP 143/90
== END 2017-02-15 21:30 | disposition home or self-care (01) ==
LOC: UTC 18:19 → ER 18:24
PROVIDERS: Emergency Medicine; Nurse Practitioner Family
DX: R10.11 Right upper quadrant pain (principal); J44.9 Chronic obstructive pulmonary disease, unspecified; K21.9 Gastro-esophageal reflux disease without esophagitis; F17.210 Nicotine dependence, cigarettes, uncomplicated
CPT/HCPCS: J2405

== ENCOUNTER → 2017-02-20 | Outpatient (CLI) | payer MEDICAID ==
[~2017-02-20] MED LIST changes: +ETODOLAC200 MG PO
--- NOTE | 2017-02-20 11:49 | RADIOLOGY REPORT PS360 ---
US RUQ-(ABD LTD)1ORGAN/QUAD/FU HISTORY: RUQ PAIN ORDERING PHYSICIAN: Naveen Lamb MD PATIENT AGE: 51 years COMPARISON: None FINDINGS: PANCREAS:Unremarkable. No obvious mass or abnormal fluid collection. No ductal dilatation LIVER:No focal liver lesions demonstrated. Homogeneous echogenicity. No intrahepatic biliary ductal dilatation evident RIGHT KIDNEY:Unremarkable. Normal size and echogenicity. No hydronephrosis GALLBLADDER:No gallstones, gallbladder wall thickening, pericholecystic fluid, or biliary dilatation. There is a small amount sludge in the gallbladder versus concentrated bile. Increased echogenicity is present along the anterior wall the gallbladder with comet tail artifact with cholesterolosis IMPRESSION: 1. No gallstones or biliary dilatation. 2. Cholesterolosis with this mild amount of sludge versus concentrated bile within the gallbladder
== END ==
LOC: RAD 08:25
DX: R10.11 Right upper quadrant pain (principal)

== ENCOUNTER → 2017-03-13 | Outpatient (CLI) | payer MEDICAID ==
--- NOTE | 2017-03-13 15:49 | RADIOLOGY REPORT PS360 ---
[facility] HEPATOBILIARY SCAN HISTORY: RUQ PAIN, SLUDGE ORDERING PHYSICIAN: Naveen Lamb MD PATIENT AGE: 51 years COMPARISON: None DOSE: 8.45 mCi technetium Choletec. Fatty meal with Ensure FINDINGS: Homogeneous activity is present within the hepatic parenchyma. Activity is present in the gallbladder by 15 minutes. Activity is present in the small bowel by 40 minutes. The gallbladder ejection fraction is calculated to be 72% The patient did not report pain or other symptoms during the fatty meal. IMPRESSION: Unremarkable hepatobiliary scan and gallbladder ejection fraction. No evidence of common or cystic duct obstruction with normal gallbladder ejection fraction
== END ==
LOC: RAD 10:01
DX: K82.8 Other specified diseases of gallbladder (principal)
CPT/HCPCS: A9537